=== PATIENT | male | born 1940 | race Caucasian/White ===

== ENCOUNTER → 2016-10-14 | Outpatient (CLI) | payer BC ==
[~2016-10-14] MED LIST: AMLO-110 PO; ASPCH81X PO; ATOR10TA82 PO; CHOL100010 PO; HYDR12.56 PO; PRLSR20 PO
[2016-10-14 11:33] LABS: BASO % 0.3 %; BASO ABS # 0.02 K/uL (0-0.2); COMPLETE YES; EOS % 4.2 %; HEMATOCRIT 42.1 % (42-52); IG% 0.3 %; LYMPH % 23.9 %; LYMPH ABS # 1.41 K/uL (1.2-3.4); MEAN CELL VOLUME 90.7 fL (80-100); MEAN CORPUSCULAR HEMOGLOBIN 29.5 pg (25-34); MEAN CORPUSCULAR HGB CONC 32.5 g/dl (32-36); MEAN PLATELET VOLUME 12.2 fL (7.4-10.4); MONO % 9.3 %; PLATELET COUNT 194 K/uL (130-400); RED BLOOD COUNT 4.64 M/uL (4.7-6.1)
[2016-10-14 11:49] LABS: ALT/SGPT 44 U/L (12-78); AST/SGOT 17 U/L (15-37); BLOOD UREA NITROGEN 35 mg/dl (7-18); BUN/CREATININE RATIO 23.1 (10-20); CARBON DIOXIDE 27 mmol/L (21-32); CHLORIDE 106 mmol/L (98-107); CHOLESTEROL 165 mg/dl (0-200); GLUCOSE 91 mg/dl (70-99); POTASSIUM 4.1 mmol/L (3.5-5.1); SODIUM 140 mmol/L (136-145); TRIGLYCERIDES 90 mg/dl (0-150); VERY LOW DENSITY LIPOPROT CALC 18 mg/dl
[2016-10-14 11:50] LABS: CALCIUM 9.1 mg/dl (8.5-10.1)
[2016-10-14 12:08] LABS: CHOLESTEROL/HDL RATIO 3.2; HDL CHOLESTEROL 51 mg/dl; LDL CHOLESTEROL CALCULATED 96 mg/dl; PROSTATE SPECIFIC ANTIGEN < 0.010 ng/ml (0.000-4.000); THYROID STIMULATING HORMONE 0.686 uIu/ml (0.300-4.500)
== END | disposition home or self-care (01) ==
LOC: C.LAB1850 09:13
PROVIDERS: ATTEND Internal Medicine
DX: E78.00 Pure hypercholesterolemia, unspecified (principal); I10 Essential (primary) hypertension; N18.3 Chronic kidney disease, stage 3 (moderate); C61 Malignant neoplasm of prostate

== ENCOUNTER → 2017-12-21 | Outpatient (CLI) | payer OTHER ==
[~2017-12-21] MED LIST changes: -AMLO-110 PO; +AMLO5TAB3 PO
== END | disposition home or self-care (01) ==
LOC: C.LABSPEC 12:59
PROVIDERS: ATTEND Internal Medicine Infectious Disease
DX: R51 Headache (principal)

== ENCOUNTER 2022-11-08 07:30 | Inpatient (IN) ==
[2022-11-08] MEDS ORDERED: ONDANSETRON INJ 2 MG/ML 2 ML VIAL IV STA (07:48)
--- NOTE | 2022-11-08 07:52 | Emergency Department Note ---
Impression & Plan Dizziness, CHI (closed head injury), Facial laceration, Fall, Hypomagnesemia ED Provider Note ED Provider Note NAME: CHAPO SOTO AGE:82 SEX: Male : 1940 ARRIVES VIA: EMS INFORMANT: Patient ED PROVIDER(s): Delilah Godinez DO CHIEF COMPLAINT: Dizziness, fall HPI: This is an 82-year-old male presents emerged part with dizziness. Patient states he does have a prior history of similar episodes of though never this severe. Patient states this morning dizziness was severe with accompanying headache and nausea although no vomiting. He states he tried to get up and was very off balance and fell striking his head. He denies LOC but does seem to have a hard time remembering the sequence of events this morning. Patient denies any recent illness, fevers or chills. Patient states he did have a headache prior to falling and striking his head. He denies any neck or back pain or other concern for injury. He denies any recent change in medications. He denies vision changes or tinnitus. PAST MEDICAL HISTORY:See Below PAST SURGICAL HISTORY:See Below FAMILY HISTORY:See Below SOCIAL HISTORY:See Below HOME MEDICATIONS:See Below ALLERGIES:See Below VITALS:See Below PHYSICAL EXAMINATION: GENERAL: alert, ill appearing, well nourished, mild distress, non-toxic, holding onto the bed HEAD: nc, small superficial laceration noted to the central superior forehead, no other cephalohematoma, no monsalve signs, no raccoon eyes, no evidence of facial trauma otherwise EYE EXAM: normal conjunctiva, PERRL and EOM's grossly intact, patient with significant nystagmus that appears predominantly horizontal although patient could not keep eyes open OROPHARYNX: no exudate, no erythema, lips, buccal mucosa, and tongue normal and mucous membranes are dry, no evidence of dental trauma, no blood in the posterior oropharynx NECK: supple, no nuchal rigidity, no adenopathy, non-tender, FROM LUNGS: Clear to auscultation. Normal chest wall mechanics, no w/r/r HEART: no murmurs, S1 normal and S2 normal ABDOMEN: abdomen soft, non-tender, normo-active bowel sounds, no masses, no rebound or guarding. BACK: Back is symmetrical on inspection and there is no deformity, no midline tenderness, no CVA tenderness. SKIN: no rashes, petechiae, orbruising UPPER EXTREMITIES: upper extremities are grossly normal. FROM, nml pulses b/l. LOWER EXTREMITIES: No pitting edema. FROM, nml pulses b/l. Scattered superficial abrasions to bilateral lower extremities. Small laceration noted to right great toe. NEURO EXAM: Normal sensorium, cranial nerves II-XII grossly intact, normal speech, no facial droop,unable to perform additional extremity testing due to profound vertigo, no gross limb ataxia Vital Signs: reviewed and remarkable Differential Diagnosis: ischemic Stroke, hemorrhagic stroke, bells palsy, mass, neoplasm, migraine headache, seizure, subarachnoid hemorrhage, TIA, and transient global amnesia. MEDICAL DECISION MAKING: This is an 82-year-old male who presents emergency department following a fall at home complaining of dizziness and weakness. Labs drawn and sent, IV established, EKG performed at bedside interpreted by me and patient monitored on telemetry. Patient started on IV fluids and given IV Zofran and IV Valium in order to help facilitate CT/CTA. CT imaging reassuring, and after nausea improved patient given oral potassium repletion as well as oral meclizine with slow improvement of his symptoms additionally to the point where patient could not open his eyes. Patient's present at bedside and we discussed his presentation additionally. She also made mention that he had not been feeling well recently and had decreased intake and fatigue. He denied any other focal symptoms. Labs reassuring however patient noted to have significant hypomagnesemia which was confirmed on lab testing. Patient started on IV magnesium. Patient's EKG did not show any prolonged intervals or ectopy. Patient noted to have leukocytosis of unclear etiology. Mild hyperglycemia noted otherwise suspect the anion gap more likely from dehydration and not evolving DKA. Patient's CKD appears stable compared to prior on review of EMR. At this time I have a low suspicion for occult infectious etiology. Nasal swab negative for acute viral etiology. I have a low suspicion for any additional occult traumatic injury. Case discussed with hospitalist for additional evaluation and management. Consultation(s): 0945: Discussed with Dr. Kelly. ER Treatment Provided: See below Diagnostics Interpreted By Me: -ECG: Normal sinus at 96, leftward axis, normal intervals, nonspecific ST/T wave change -Cardiac Monitoring: An order was placed for continuous cardiac monitoring. The monitor shows a rate of 98 with normal sinus rhythm. -Laboratory studies: As stated above and show below. -Imaging studies: CT head: No obvious ICH Triage Nursing Note Reviewed Prior/Outside Records Reviewed Procedures: [] Critical Care: Critical care of 46 min performed to assess and manage high likelihood of life- threatening hypomagnesemia, involving labs and imaging performed with assessment to evaluate dizziness and fall diagnosis with frequent reassessment. This time includes bedside time, treatment discussions with patient/family/consultants, documentation time and excludes procedure time. Past Med/Surg History Medical History Arthralgia CKD (chronic kidney disease) GERD (gastroesophageal reflux disease) HTN (hypertension) Hyperglycemia Hyperlipidemia Prostate cancer diagnosed 2010--sx Severe obstructive sleep apnea cpap Surgical History History of bilateral cataract extraction History of cardiac cath roughly 20 yrs ago--no stents History of esophagogastroduodenoscopy (EGD) History of prostate biopsy History of prostatectomy History of wisdom tooth extraction S/P tonsillectomy Family History Father Myocardial infarction Hypertension Obesity Other No family history of adverse response to anesthesia Prostate cancer Denies family history of Ovarian cancer Breast cancer Colorectal cancer Social History Smoking Status: Unknown if ever smoked Second Hand Exposure: No; Do You Dip or Chew Tobacco: No; Hx Alcohol Use: Yes Alcohol type: wine Hx Substance Use: No Preferred Language: Nepali Communication Ability: Effective Visual Impairment: No Limitations Hearing Ability: Normal Clinical Research Coordinator Required: No Beliefs That Will Affect Care: None marital status: Current Living Situation: Spouse current occupational status: retired How many Children do You have: 2 How many Children do You have Comment: 2 sons Other Information That Helps Us Care for You: No Feels Safe at Home: Yes Safety Concerns: Feels Safe At This Time Childhood Exposure to Second-Hand Smoke: Yes Diet: regular during the past year weight has: remained stable Dental Care, Regularly: Yes Physical Activity Frequency: 3-4 Times per Week Seatbelt Use: always Sunscreen Use: Yes Assistive Devices: CPAP Allergies Allergies Allergy/AdvReac Type Severity Reaction Status Date / Time No Known Drug Allergies Allergy Unknown Verified 11/08/22 10:21 Home Meds Home Medications Medication Instructions Recorded Confirmed cholecalciferol (vitamin D3) 50 2,000 units PO HS 04/17/19 11/08/22 mcg (2,000 unit) capsule omeprazole 20 mg capsule,delayed 20 mg PO BID 02/06/20 11/08/22 release Previous Rx's Medication Instructions Recorded amlodipine 5 mg tablet 5 mg PO DAILY #90 tabs 10/24/22 atorvastatin 20 mg tablet (Lipitor) 20 mg PO QPM #90 tabs 10/24/22 hydrochlorothiazide 12.5 mg capsule 12.5 mg PO QAM #90 caps 10/24/22 olmesartan 20 mg tablet 20 mg PO DAILY #90 tabs 10/24/22 Results & Data (ED) Vital Signs Vital Signs - 24 hr 11/08/22 07:40 11/08/22 08:01 11/08/22 07:35 Temperature 36.5 C Temperature Source Oral Pulse Rate 99 H 91 H 100 H Pulse Rate from SpO2 Sensor Respiratory Rate 16 22 Blood Pressure 168/85 H Blood Pressure Mean 112 Pulse Oximetry 97 Sepsis Recent Fever Within 48 Hours No Sepsis New/Unexplained Change in Mental Status No Sepsis Action Taken by Nursing No Action Required 11/08/22 07:36 11/08/22 07:36 11/08/22 08:00 Temperature Temperature Source Pulse Rate 98 H Pulse Rate from SpO2 Sensor Respiratory Rate 18 Blood Pressure 168/85 H 159/105 H Blood Pressure Mean 125 139 Pulse Oximetry Sepsis Recent Fever Within 48 Hours Sepsis New/Unexplained Change in Mental Status Sepsis Action Taken by Nursing 11/08/22 08:00 11/08/22 08:42 11/08/22 08:45 Temperature Temperature Source Pulse Rate 89 99 H Pulse Rate from SpO2 Sensor 97 H Respiratory Rate 21 15 Blood Pressure 176/91 H Blood Pressure Mean 132 Pulse Oximetry 100 Sepsis Recent Fever Within 48 Hours Sepsis New/Unexplained Change in Mental Status Sepsis Action Taken by Nursing 11/08/22 08:45 11/08/22 09:00 11/08/22 09:00 Temperature Temperature Source Pulse Rate 96 H 95 H Pulse Rate from SpO2 Sensor 95 H 96 H Respiratory Rate 16 18 Blood Pressure 168/86 H Blood Pressure Mean 119 Pulse Oximetry 100 100 Sepsis Recent Fever Within 48 Hours Sepsis New/Unexplained Change in Mental Status Sepsis Action Taken by Nursing 11/08/22 09:30 11/08/22 09:30 11/08/22 10:00 Temperature Temperature Source Pulse Rate 91 H 86 Pulse Rate from SpO2 Sensor 91 H 83 Respiratory Rate 22 27 H Blood Pressure 169/86 H Blood Pressure Mean 102 Pulse Oximetry 100 100 Sepsis Recent Fever Within 48 Hours Sepsis New/Unexplained Change in Mental Status Sepsis Action Taken by Nursing Laboratory Data 11/08/22 07:43 11/08/22 07:43 Lab Results 11/08/22 11/08/22 11/08/22 Range/Units 07:43 07:43 07:43 WBC 15.22 H (4.8-10.8) K/ul RBC 4.11 L (4.70-6.10) M/uL Hgb 12.6 L (14.0-18.0) g/dl Hct 35.1 L (42.0-52.0) % MCV 85.4 (80.0-100.0) fL MCH 30.7 (25.0-34.0) pg MCHC 35.9 (32.0-36.0) g/dL RDW Std Deviation 36.9 (36.4-46.3) fL RDW Coeff of Emilie 11.9 (11.5-14.5) % Plt Count 187 (130-400) K/uL MPV 12.6 H (9.4-12.4) fL Immature Gran % (Auto) 0.4 % Neut % (Auto) 87.5 % Lymph % (Auto) 8.5 % Pine % (Auto) 3.3 % Eos % (Auto) 0.1 % Baso % (Auto) 0.2 % Neut # (Auto) 13.31 H (1.40-6.50) K/uL Lymph # (Auto) 1.30 (1.2-3.4) K/uL Pine # (Auto) 0.50 (0.11-0.59) K/uL Eos # (Auto) 0.02 (0-0.50) K/uL Baso # (Auto) 0.03 (0-0.2) K/uL Immature Gran # (Auto) 0.06 (0.01-0.20) K/uL VBG pH (7.36-7.41) VBG pCO2 (38-50) mmHg VBG pO2 mmHg VBG HCO3 mmol/L VBG O2 Saturation % VBG Base Excess mEq/L Sodium 137 (136-145) mmol/L Potassium 2.9 L (3.5-5.1) mmol/L Chloride 104 (98-107) mmol/L Carbon Dioxide 16 L (21-32) mmol/L Anion Gap 17 H (3-11) BUN 30 H (6-23) mg/dl Creatinine 1.65 H (0.6-1.4) mg/dl Est Cr Clr Drug Dosing 35.8 ml/min Est GFR ( Amer) 44.1 ml/min Est GFR (Non-Af Amer) 38.1 ml/min BUN/Creatinine Ratio 18.2 (10-20) Glucose 209 H (70-99(Fasting)) mg/dl Lactate (0.4-2.0) mmol/L Calcium 8.2 L (8.6-10.3) mg/dl Phosphorus (2.5-4.9) mg/dl Magnesium < 0.5 L* (1.7-2.4) mg/dl Total Bilirubin 1.0 (0.2-1.0) mg/dl AST 15 (13-39) U/L ALT 16 (7-52) U/L Alkaline Phosphatase 66 (34-104) U/L Troponin I High Sens 13.3 (0-20) pg/ml C-Reactive Protein (0-0.5) mg/dl Total Protein 7.1 (6.0-8.3) gm/dl Albumin 4.4 (3.4-5.0) gm/dl Globulin 2.7 (2.5-4.0) gm/dl Albumin/Globulin Ratio 1.6 (0.9-2) Lipase 18 (11-82) U/L Procalcitonin (0-0.5) ng/ml TSH 1.308 (0.300-4.500) uIu/ml Urine Color Urine Appearance (Clear) Urine pH (4.5-7.5) Ur Specific Lena (1.000-1.030) Urine Protein (Negative) Urine Glucose (UA) (Negative) Urine Ketones (Negative) Urine Blood (Negative) Urine Nitrite (Negative) Urine Bilirubin (Negative) Urine Urobilinogen (Negative) Ur Leukocyte Esterase (Negative) Urine WBC (Auto) (0-5) /hpf Urine RBC (Auto) (0-4) /hpf U Hyaline Cast (Auto) (0-5) /lpf U Epithel Cells (Auto) (0-5) /lpf Urine Bacteria (Auto) (Negative) Salicylates (3.0-30) mg/dl Urine Opiates Screen (Neg) Ur Methadone, Qual (Neg) Acetaminophen (10-30) ug/ml Urine Barbiturates (Neg) Ur Phencyclidine (PCP) (Neg) U Amphetamin/Meth Scrn (Neg) MDMA (Ecstasy) Screen (Neg) U Benzodiazepines Scrn (Neg) Ur Cocaine Metabolite (Neg) U Marijuana (THC) Screen (Neg) Ethyl Alcohol mg/dL (<10.0) mg/dl Anaplasma Smear Babesia Smear Lyme Disease IgG Ab (Negative) Lyme Disease IgM Ab (Negative) 11/08/22 11/08/22 11/08/22 Range/Units 07:43 09:45 09:45 WBC (4.8-10.8) K/ul RBC (4.70-6.10) M/uL Hgb (14.0-18.0) g/dl Hct (42.0-52.0) % MCV (80.0-100.0) fL MCH (25.0-34.0) pg MCHC (32.0-36.0) g/dL RDW Std Deviation (36.4-46.3) fL RDW Coeff of Emilie (11.5-14.5) % Plt Count (130-400) K/uL MPV (9.4-12.4) fL Immature Gran % (Auto) % Neut % (Auto) % Lymph % (Auto) % Pine % (Auto) % Eos % (Auto) % Baso % (Auto) % Neut # (Auto) (1.40-6.50) K/uL Lymph # (Auto) (1.2-3.4) K/uL Pine # (Auto) (0.11-0.59) K/uL Eos # (Auto) (0-0.50) K/uL Baso # (Auto) (0-0.2) K/uL Immature Gran # (Auto) (0.01-0.20) K/uL VBG pH (7.36-7.41) VBG pCO2 (38-50) mmHg VBG pO2 mmHg VBG HCO3 mmol/L VBG O2 Saturation % VBG Base Excess mEq/L Sodium (136-145) mmol/L Potassium (3.5-5.1) mmol/L Chloride (98-107) mmol/L Carbon Dioxide (21-32) mmol/L Anion Gap (3-11) BUN (6-23) mg/dl Creatinine (0.6-1.4) mg/dl Est Cr Clr Drug Dosing ml/min Est GFR ( Amer) ml/min Est GFR (Non-Af Amer) ml/min BUN/Creatinine Ratio (10-20) Glucose (70-99(Fasting)) mg/dl Lactate (0.4-2.0) mmol/L Calcium (8.6-10.3) mg/dl Phosphorus (2.5-4.9) mg/dl Magnesium (1.7-2.4) mg/dl Total Bilirubin (0.2-1.0) mg/dl AST (13-39) U/L ALT (7-52) U/L Alkaline Phosphatase (34-104) U/L Troponin I High Sens (0-20) pg/ml C-Reactive Protein (0-0.5) mg/dl Total Protein (6.0-8.3) gm/dl Albumin (3.4-5.0) gm/dl Globulin (2.5-4.0) gm/dl Albumin/Globulin Ratio (0.9-2) Lipase (11-82) U/L Procalcitonin (0-0.5) ng/ml TSH (0.300-4.500) uIu/ml Urine Color Yellow Urine Appearance Clear (Clear) Urine pH 5.0 (4.5-7.5) Ur Specific Lena 1.030 (1.000-1.030) Urine Protein Negative (Negative) Urine Glucose (UA) Negative (Negative) Urine Ketones 1+ H (Negative) Urine Blood Trace H (Negative) Urine Nitrite Negative (Negative) Urine Bilirubin Negative (Negative) Urine Urobilinogen Negative (Negative) Ur Leukocyte Esterase Negative (Negative) Urine WBC (Auto) 1-5 (0-5) /hpf Urine RBC (Auto) 0-4 (0-4) /hpf U Hyaline Cast (Auto) 1-5 (0-5) /lpf U Epithel Cells (Auto) 5-10 H (0-5) /lpf Urine Bacteria (Auto) Negative (Negative) Salicylates (3.0-30) mg/dl Urine Opiates Screen Neg (Neg) Ur Methadone, Qual Neg (Neg) Acetaminophen (10-30) ug/ml Urine Barbiturates Neg (Neg) Ur Phencyclidine (PCP) Neg (Neg) U Amphetamin/Meth Scrn Neg (Neg) MDMA (Ecstasy) Screen Neg (Neg) U Benzodiazepines Scrn Neg (Neg) Ur Cocaine Metabolite Neg (Neg) U Marijuana (THC) Screen Neg (Neg) Ethyl Alcohol mg/dL (<10.0) mg/dl Anaplasma Smear Babesia Smear Lyme Disease IgG Ab Negative (Negative) Lyme Disease IgM Ab Negative (Negative) 11/08/22 11/08/22 11/08/22 Range/Units 09:59 09:59 09:59 WBC (4.8-10.8) K/ul RBC (4.70-6.10) M/uL Hgb (14.0-18.0) g/dl Hct (42.0-52.0) % MCV (80.0-100.0) fL MCH (25.0-34.0) pg MCHC (32.0-36.0) g/dL RDW Std Deviation (36.4-46.3) fL RDW Coeff of Emilie (11.5-14.5) % Plt Count (130-400) K/uL MPV (9.4-12.4) fL Immature Gran % (Auto) % Neut % (Auto) % Lymph % (Auto) % Pine % (Auto) % Eos % (Auto) % Baso % (Auto) % Neut # (Auto) (1.40-6.50) K/uL Lymph # (Auto) (1.2-3.4) K/uL Pine # (Auto) (0.11-0.59) K/uL Eos # (Auto) (0-0.50) K/uL Baso # (Auto) (0-0.2) K/uL Immature Gran # (Auto) (0.01-0.20) K/uL VBG pH (7.36-7.41) VBG pCO2 (38-50) mmHg VBG pO2 mmHg VBG HCO3 mmol/L VBG O2 Saturation % VBG Base Excess mEq/L Sodium (136-145) mmol/L Potassium (3.5-5.1) mmol/L Chloride (98-107) mmol/L Carbon Dioxide (21-32) mmol/L Anion Gap (3-11) BUN (6-23) mg/dl Creatinine (0.6-1.4) mg/dl Est Cr Clr Drug Dosing ml/min Est GFR ( Amer) ml/min Est GFR (Non-Af Amer) ml/min BUN/Creatinine Ratio (10-20) Glucose (70-99(Fasting)) mg/dl Lactate (0.4-2.0) mmol/L Calcium (8.6-10.3) mg/dl Phosphorus 1.2 L* (2.5-4.9) mg/dl Magnesium (1.7-2.4) mg/dl Total Bilirubin (0.2-1.0) mg/dl AST (13-39) U/L ALT (7-52) U/L Alkaline Phosphatase (34-104) U/L Troponin I High Sens (0-20) pg/ml C-Reactive Protein < 0.50 (0-0.5) mg/dl Total Protein (6.0-8.3) gm/dl Albumin (3.4-5.0) gm/dl Globulin (2.5-4.0) gm/dl Albumin/Globulin Ratio (0.9-2) Lipase (11-82) U/L Procalcitonin < 0.05 (0-0.5) ng/ml TSH (0.300-4.500) uIu/ml Urine Color Urine Appearance (Clear) Urine pH (4.5-7.5) Ur Specific Lena (1.000-1.030) Urine Protein (Negative) Urine Glucose (UA) (Negative) Urine Ketones (Negative) Urine Blood (Negative) Urine Nitrite (Negative) Urine Bilirubin (Negative) Urine Urobilinogen (Negative) Ur Leukocyte Esterase (Negative) Urine WBC (Auto) (0-5) /hpf Urine RBC (Auto) (0-4) /hpf U Hyaline Cast (Auto) (0-5) /lpf U Epithel Cells (Auto) (0-5) /lpf Urine Bacteria (Auto) (Negative) Salicylates (3.0-30) mg/dl Urine Opiates Screen (Neg) Ur Methadone, Qual (Neg) Acetaminophen (10-30) ug/ml Urine Barbiturates (Neg) Ur Phencyclidine (PCP) (Neg) U Amphetamin/Meth Scrn (Neg) MDMA (Ecstasy) Screen (Neg) U Benzodiazepines Scrn (Neg) Ur Cocaine Metabolite (Neg) U Marijuana (THC) Screen (Neg) Ethyl Alcohol mg/dL (<10.0) mg/dl Anaplasma Smear See Comment Babesia Smear See Comment Lyme Disease IgG Ab (Negative) Lyme Disease IgM Ab (Negative) 11/08/22 11/08/22 11/08/22 Range/Units 09:59 10:27 10:27 WBC (4.8-10.8) K/ul RBC (4.70-6.10) M/uL Hgb (14.0-18.0) g/dl Hct (42.0-52.0) % MCV (80.0-100.0) fL MCH (25.0-34.0) pg MCHC (32.0-36.0) g/dL RDW Std Deviation (36.4-46.3) fL RDW Coeff of Emilie (11.5-14.5) % Plt Count (130-400) K/uL MPV (9.4-12.4) fL Immature Gran % (Auto) % Neut % (Auto) % Lymph % (Auto) % Pine % (Auto) % Eos % (Auto) % Baso % (Auto) % Neut # (Auto) (1.40-6.50) K/uL Lymph # (Auto) (1.2-3.4) K/uL Pine # (Auto) (0.11-0.59) K/uL Eos # (Auto) (0-0.50) K/uL Baso # (Auto) (0-0.2) K/uL Immature Gran # (Auto) (0.01-0.20) K/uL VBG pH 7.42 H (7.36-7.41) VBG pCO2 31 L (38-50) mmHg VBG pO2 29 mmHg VBG HCO3 20 mmol/L VBG O2 Saturation < 60.0 % VBG Base Excess -3.5 mEq/L Sodium (136-145) mmol/L Potassium (3.5-5.1) mmol/L Chloride (98-107) mmol/L Carbon Dioxide (21-32) mmol/L Anion Gap (3-11) BUN (6-23) mg/dl Creatinine (0.6-1.4) mg/dl Est Cr Clr Drug Dosing ml/min Est GFR ( Amer) ml/min Est GFR (Non-Af Amer) ml/min BUN/Creatinine Ratio (10-20) Glucose (70-99(Fasting)) mg/dl Lactate 1.3 (0.4-2.0) mmol/L Calcium (8.6-10.3) mg/dl Phosphorus (2.5-4.9) mg/dl Magnesium (1.7-2.4) mg/dl Total Bilirubin (0.2-1.0) mg/dl AST (13-39) U/L ALT (7-52) U/L Alkaline Phosphatase (34-104) U/L Troponin I High Sens (0-20) pg/ml C-Reactive Protein (0-0.5) mg/dl Total Protein (6.0-8.3) gm/dl Albumin (3.4-5.0) gm/dl Globulin (2.5-4.0) gm/dl Albumin/Globulin Ratio (0.9-2) Lipase (11-82) U/L Procalcitonin (0-0.5) ng/ml TSH (0.300-4.500) uIu/ml Urine Color Urine Appearance (Clear) Urine pH (4.5-7.5) Ur Specific Lena (1.000-1.030) Urine Protein (Negative) Urine Glucose (UA) (Negative) Urine Ketones (Negative) Urine Blood (Negative) Urine Nitrite (Negative) Urine Bilirubin (Negative) Urine Urobilinogen (Negative) Ur Leukocyte Esterase (Negative) Urine WBC (Auto) (0-5) /hpf Urine RBC (Auto) (0-4) /hpf U Hyaline Cast (Auto) (0-5) /lpf U Epithel Cells (Auto) (0-5) /lpf Urine Bacteria (Auto) (Negative) Salicylates < 3.0 L (3.0-30) mg/dl Urine Opiates Screen (Neg) Ur Methadone, Qual (Neg) Acetaminophen < 3 L (10-30) ug/ml Urine Barbiturates (Neg) Ur Phencyclidine (PCP) (Neg) U Amphetamin/Meth Scrn (Neg) MDMA (Ecstasy) Screen (Neg) U Benzodiazepines Scrn (Neg) Ur Cocaine Metabolite (Neg) U Marijuana (THC) Screen (Neg) Ethyl Alcohol mg/dL (<10.0) mg/dl Anaplasma Smear Babesia Smear Lyme Disease IgG Ab (Negative) Lyme Disease IgM Ab (Negative) 11/08/22 Range/Units 10:27 WBC (4.8-10.8) K/ul RBC (4.70-6.10) M/uL Hgb (14.0-18.0) g/dl Hct (42.0-52.0) % MCV (80.0-100.0) fL MCH (25.0-34.0) pg MCHC (32.0-36.0) g/dL RDW Std Deviation (36.4-46.3) fL RDW Coeff of Emilie (11.5-14.5) % Plt Count (130-400) K/uL MPV (9.4-12.4) fL Immature Gran % (Auto) % Neut % (Auto) % Lymph % (Auto) % Pine % (Auto) % Eos % (Auto) % Baso % (Auto) % Neut # (Auto) (1.40-6.50) K/uL Lymph # (Auto) (1.2-3.4) K/uL Pine # (Auto) (0.11-0.59) K/uL Eos # (Auto) (0-0.50) K/uL Baso # (Auto) (0-0.2) K/uL Immature Gran # (Auto) (0.01-0.20) K/uL VBG pH (7.36-7.41) VBG pCO2 (38-50) mmHg VBG pO2 mmHg VBG HCO3 mmol/L VBG O2 Saturation % VBG Base Excess mEq/L Sodium (136-145) mmol/L Potassium (3.5-5.1) mmol/L Chloride (98-107) mmol/L Carbon Dioxide (21-32) mmol/L Anion Gap (3-11) BUN (6-23) mg/dl Creatinine (0.6-1.4) mg/dl Est Cr Clr Drug Dosing ml/min Est GFR ( Amer) ml/min Est GFR (Non-Af Amer) ml/min BUN/Creatinine Ratio (10-20) Glucose (70-99(Fasting)) mg/dl Lactate (0.4-2.0) mmol/L Calcium (8.6-10.3) mg/dl Phosphorus (2.5-4.9) mg/dl Magnesium (1.7-2.4) mg/dl Total Bilirubin (0.2-1.0) mg/dl AST (13-39) U/L ALT (7-52) U/L Alkaline Phosphatase (34-104) U/L Troponin I High Sens (0-20) pg/ml C-Reactive Protein (0-0.5) mg/dl Total Protein (6.0-8.3) gm/dl Albumin (3.4-5.0) gm/dl Globulin (2.5-4.0) gm/dl Albumin/Globulin Ratio (0.9-2) Lipase (11-82) U/L Procalcitonin (0-0.5) ng/ml TSH (0.300-4.500) uIu/ml Urine Color Urine Appearance (Clear) Urine pH (4.5-7.5) Ur Specific Lena (1.000-1.030) Urine Protein (Negative) Urine Glucose (UA) (Negative) Urine Ketones (Negative) Urine Blood (Negative) Urine Nitrite (Negative) Urine Bilirubin (Negative) Urine Urobilinogen (Negative) Ur Leukocyte Esterase (Negative) Urine WBC (Auto) (0-5) /hpf Urine RBC (Auto) (0-4) /hpf U Hyaline Cast (Auto) (0-5) /lpf U Epithel Cells (Auto) (0-5) /lpf Urine Bacteria (Auto) (Negative) Salicylates (3.0-30) mg/dl Urine Opiates Screen (Neg) Ur Methadone, Qual (Neg) Acetaminophen (10-30) ug/ml Urine Barbiturates (Neg) Ur Phencyclidine (PCP) (Neg) U Amphetamin/Meth Scrn (Neg) MDMA (Ecstasy) Screen (Neg) U Benzodiazepines Scrn (Neg) Ur Cocaine Metabolite (Neg) U Marijuana (THC) Screen (Neg) Ethyl Alcohol mg/dL < 10.0 (<10.0) mg/dl Anaplasma Smear Babesia Smear Lyme Disease IgG Ab (Negative) Lyme Disease IgM Ab (Negative) Administered Medications Magnesium Sulfate/Dextrose (Magnesium Sulfate / D5w) 1 gm in 100 mls @ 50 mls/hr IV Q2H JUNE Stop: 11/08/22 23:36 Last Admin: 11/08/22 16:06 Dose: 50 mls/hr Documented By: Infusion: 11/08/22 16:06 Dose: 50 mls/hr Documented By: OEdward Admin: 11/08/22 14:19 Dose: 50 mls/hr Documented By: DIEUDONNE Insulin Aspart (Insulin Aspart Per Unit Charge) 0 units SC ACHS JUNE Stop: 12/08/22 13:59 Last Admin: 11/08/22 16:35 Dose: Not Given Documented By: DIEUDONNE Co-signed By: JAZZY Magnesium Oxide (Magnesium Oxide 400 Mg Tab) 800 mg PO BID JUNE Stop: 12/08/22 13:36 Last Admin: 11/08/22 14:18 Dose: 800 mg Documented By: DIEUDONNE Discontinued Medications Diazepam (Diazepam 5 Mg/Ml Inj 10ml Vial) 2 mg IV NOW STA Stop: 11/08/22 07:49 Last Admin: 11/08/22 07:58 Dose: 2 mg Documented By: CLIFTON Gadobutrol (Gadobutrol 65ml Vial) 8.5 ml IV ONCE ONE Stop: 11/08/22 13:07 Last Admin: 11/08/22 13:07 Dose: 8.5 ml Documented By: MLIsis Sodium Chloride (Nss 1000ml) 1,000 mls @ 200 mls/hr IV .Q5H JUNE Stop: 12/08/22 07:59 Last Infusion: 11/08/22 13:02 Dose: 0 mls/hr Documented By: Admin: 11/08/22 07:58 Dose: 200 mls/hr Documented By: CLIFTON Magnesium Sulfate/Dextrose (Magnesium Sulfate / D5w) 1 gm in 100 mls @ 100 mls/hr IV Q1H JUNE Stop: 11/08/22 11:15 Last Infusion: 11/08/22 11:28 Dose: 0 mls/hr Documented By: Admin: 11/08/22 10:26 Dose: 100 mls/hr Documented By: Infusion: 11/08/22 10:26 Dose: 100 mls/hr Documented By: Admin: 11/08/22 09:30 Dose: 100 mls/hr Documented By: CLIFTON Potassium Phosphate 21 mmol/ (Sodium Chloride) 507 mls @ 145 mls/hr IV ONE ONE Stop: 11/08/22 14:44 Last Infusion: 11/08/22 14:56 Dose: 0 mls/hr Documented By: Admin: 11/08/22 11:29 Dose: 145 mls/hr Documented By: ALPESH Magnesium Sulfate/Dextrose (Magnesium Sulfate / D5w) 1 gm in 100 mls @ 100 mls/hr IV 1115 ONE Stop: 11/08/22 12:14 Last Infusion: 11/08/22 12:11 Dose: 0 mls/hr Documented By: Admin: 11/08/22 11:11 Dose: 100 mls/hr Documented By: LAKSHMI Insulin Aspart (Insulin Aspart Per Unit Charge) 0 units SC Q6 JUNE Stop: 12/08/22 13:59 Last Admin: 11/08/22 14:23 Dose: Not Given Documented By: DIEUDONNE Co-signed By: JAZZY Ioversol (Optiray 320 125ml) 119 ml IV ONCE ONE Stop: 11/08/22 08:31 Last Admin: 11/08/22 08:31 Dose: 119 ml Documented By: GILMAR Meclizine HCl (Meclizine Hcl 25 Mg Tab) 25 mg PO NOW STA Stop: 11/08/22 08:54 Last Admin: 11/08/22 09:15 Dose: 25 mg Documented By: CLIFTON Ondansetron HCl (Ondansetron Inj 2 Mg/Ml 2 Ml Vial) 4 mg IV NOW STA Stop: 11/08/22 07:49 Last Admin: 11/08/22 07:58 Dose: 4 mg Documented By: CLIFTON Potassium Chloride (Potassium Chloride Crtab 20 Meq Tabcr) 40 meq PO NOW STA Stop: 11/08/22 08:20 Last Admin: 11/08/22 08:45 Dose: 40 meq Documented By: CLIFTON Imaging Data Radiologist's Impression: Head CT 11/08/22 07:[address] OF THE BRAIN; CT ANGIOGRAM OF THE BRAIN; CT ANGIOGRAM OF THE NECK CLINICAL HISTORY: Headache and dizziness. Head injury. COMPARISON STUDY: MRI of the brain dated 02/05/2018. Carotid artery ultrasound dated 05/15/2013 TECHNIQUE: Unenhanced axial CT scan of the brain is performed. Subsequently, following the IV administration of 119 of Optiray 320, CT angiogram of the head and neck was performed from the aortic arch to the vertex. Images are reviewed in the axial, sagittal, and coronal planes. 3-D MIPS images are created and assessed. IV contrast was administered without complication. All measurements were calculated based on NASCET criteria. A dose lowering technique was utilized adhering to the principles of ALARA. CT DOSE: 1074.38 mGy.cm FINDINGS: Brain parenchyma: There is age-related involutional change noting minimal microangiopathic disease. There is no hemorrhage, mass effect, or evidence of acute territorial ischemia by CT criteria. There is no evidence of enhancing mass lesion on the angiogram phase images. The ventricles, sulci, and cisterns are prominent secondary to involutional change. Juarez-white matter differentiation is preserved. No extra-axial fluid collection is seen. Thoracic aorta: There is atherosclerotic calcification of the thoracic aorta. Visualized portions of the thoracic aorta are normal in caliber. The aortic arch demonstrates standard 3-vessel anatomy. Right carotid arterial system: The right common carotid artery is widely patent, as are the right internal and external carotid arteries. Calcified plaque is noted in the carotid bulb. Left carotid arterial system: The left common carotid artery is widely patent, as are the left internal and external carotid arteries. Calcified plaque is noted in the carotid bulb. Vertebral arteries: The vertebral arteries are widely patent bilaterally and codominant in the neck. Subclavian arteries: Widely patent bilaterally. Intracranial vasculature: There is atherosclerotic calcification of the cavernous carotid arteries. The internal carotid arteries are patent at the skull base, as are the anterior and middle cerebral arteries bilaterally. The left A1 segment is diminutive. There is origin of the left posterior cerebral artery. The vertebrobasilar system and posterior cerebral arteries are widely patent. The right vertebral artery is dominant. There is no aneurysm, high-grade stenosis, or focal vessel cut off seen throughout the intracranial circulation. Jugular veins: Patent bilaterally. Dural sinuses: Patent. Lung apices: A calcific granuloma is seen in the right upper lobe. Partially visualized upper lobe lung parenchyma otherwise appears clear. Soft tissues: There is a mild frontal scalp contusion. The visualized pharyngeal soft tissues are normal in appearance noting angiographic phase technique. The oropharyngeal airway appears widely patent. The salivary and thyroid glands are normal in appearance. No cervical lymphadenopathy is seen. Skeletal structures: The skeletal structures are osteopenic. The calvarium appears intact. The cervical spine is maintained Multilevel spondylosis. No lytic or blastic lesion is seen. Orbits: The bony orbits are intact. Orbital contents are normal as visualized noting bilateral ocular lens implants. Sinuses and mastoids: There is trace mucosal thickening within the left maxillary antrum. The remaining paranasal sinuses are clear. The mastoid air cells are well pneumatized. IMPRESSION: 1. There is no hemorrhage, mass effect, or evidence of acute territorial ischemia by CT criteria. 2. Unremarkable CT angiogram of the brain. 3. Unremarkable CT angiogram of the neck. ACT 112: Negative or not required by law. Electronically signed by: Carlos David M.D. 11/08/2022 8:52 AM Head CTA 11/08/22 07:[address] OF THE BRAIN; CT ANGIOGRAM OF THE BRAIN; CT ANGIOGRAM OF THE NECK CLINICAL HISTORY: Headache and dizziness. Head injury. COMPARISON STUDY: MRI of the brain dated 02/05/2018. Carotid artery ultrasound dated 05/15/2013 TECHNIQUE: Unenhanced axial CT scan of the brain is performed. Subsequently, following the IV administration of 119 of Optiray 320, CT angiogram of the head and neck was performed from the aortic arch to the vertex. Images are reviewed in the axial, sagittal, and coronal planes. 3-D MIPS images are created and assessed. IV contrast was administered without complication. All measurements were calculated based on NASCET criteria. A dose lowering technique was utilized adhering to the principles of ALARA. CT DOSE: 1074.38 mGy.cm FINDINGS: Brain parenchyma: There is age-related involutional change noting minimal microangiopathic disease. There is no hemorrhage, mass effect, or evidence of acute territorial ischemia by CT criteria. There is no evidence of enhancing mass lesion on the angiogram phase images. The ventricles, sulci, and cisterns are prominent secondary to involutional change. Juarez-white matter differentiation is preserved. No extra-axial fluid collection is seen. Thoracic aorta: There is atherosclerotic calcification of the thoracic aorta. Visualized portions of the thoracic aorta are normal in caliber. The aortic arch demonstrates standard 3-vessel anatomy. Right carotid arterial system: The right common carotid artery is widely patent, as are the right internal and external carotid arteries. Calcified plaque is noted in the carotid bulb. Left carotid arterial system: The left common carotid artery is widely patent, as are the left internal and external carotid arteries. Calcified plaque is noted in the carotid bulb. Vertebral arteries: The vertebral arteries are widely patent bilaterally and codominant in the neck. Subclavian arteries: Widely patent bilaterally. Intracranial vasculature: There is atherosclerotic calcification of the cavernous carotid arteries. The internal carotid arteries are patent at the skull base, as are the anterior and middle cerebral arteries bilaterally. The left A1 segment is diminutive. There is origin of the left posterior cereb ral artery. The vertebrobasilar system and posterior cerebral arteries are widely patent. The right vertebral artery is dominant. There is no aneurysm, high-grade stenosis, or focal vessel cut off seen throughout the intracranial circulation. Jugular veins: Patent bilaterally. Dural sinuses: Patent. Lung apices: A calcific granuloma is seen in the right upper lobe. Partially visualized upper lobe lung parenchyma otherwise appears clear. Soft tissues: There is a mild frontal scalp contusion. The visualized pharyngeal soft tissues are normal in appearance noting angiographic phase technique. The oropharyngeal airway appears widely patent. The salivary and thyroid glands are normal in appearance. No cervical lymphadenopathy is seen. Skeletal structures: The skeletal structures are osteopenic. The calvarium appears intact. The cervical spine is maintained Multilevel spondylosis. No lytic or blastic lesion is seen. Orbits: The bony orbits are intact. Orbital contents are normal as visualized noting bilateral ocular lens implants. Sinuses and mastoids: There is trace mucosal thickening within the left maxillary antrum. The remaining paranasal sinuses are clear. The mastoid air cells are well pneumatized. IMPRESSION: 1. There is no hemorrhage, mass effect, or evidence of acute territorial ischemia by CT criteria. 2. Unremarkable CT angiogram of the brain. 3. Unremarkable CT angiogram of the neck. ACT 112: Negative or not required by law. Electronically signed by: Carlos David M.D. 11/08/2022 8:52 AM Neck CTA 11/08/22 07:[address] OF THE BRAIN; CT ANGIOGRAM OF THE BRAIN; CT ANGIOGRAM OF THE NECK CLINICAL HISTORY: Headache and dizziness. Head injury. COMPARISON STUDY: MRI of the brain dated 02/05/2018. Carotid artery ultrasound dated 05/15/2013 TECHNIQUE: Unenhanced axial CT scan of the brain is performed. Subsequently, following the IV administration of 119 of Optiray 320, CT angiogram of the head and neck was performed from the aortic arch to the vertex. Images are reviewed in the axial, sagittal, and coronal planes. 3-D MIPS images are created and assessed. IV contrast was administered without complication. All measurements were calculated based on NASCET criteria. A dose lowering technique was uti lized adhering to the principles of ALARA. CT DOSE: 1074.38 mGy.cm FINDINGS: Brain parenchyma: There is age-related involutional change noting minimal microangiopathic disease. There is no hemorrhage, mass effect, or evidence of acute territorial ischemia by CT criteria. There is no evidence of enhancing mass lesion on the angiogram phase images. The ventricles, sulci, and cisterns are prominent secondary to involutional change. Juarez-white matter differentiation is preserved. No extra-axial fluid collection is seen. Thoracic aorta: There is atherosclerotic calcification of the thoracic aorta. Visualized portions of the thoracic aorta are normal in caliber. The aortic arch demonstrates standard 3-vessel anatomy. Right carotid arterial system: The right common carotid artery is widely patent, as are the right internal and external carotid arteries. Calcified plaque is noted in the carotid bulb. Left carotid arterial system: The left common carotid artery is widely patent, as are the left internal and external carotid arteries. Calcified plaque is noted in the carotid bulb. Vertebral arteries: The vertebral arteries are widely patent bilaterally and codominant in the neck. Subclavian arteries: Widely patent bilaterally. Intracranial vasculature: There is atherosclerotic calcification of the cavernous carotid arteries. The internal carotid arteries are patent at the skull base, as are the anterior and middle cerebral arteries bilaterally. The left A1 segment is diminutive. There is origin of the left posterior cerebral artery. The vertebrobasilar system and posterior cerebral arteries are widely patent. The right vertebral artery is dominant. There is no aneurysm, high-grade stenosis, or focal vessel cut off seen throughout the intracranial circulation. Jugular veins: Patent bilaterally. Dural sinuses: Patent. Lung apices: A calcific granuloma is seen in the right upper lobe. Partially visualized upper lobe lung parenchyma otherwise appears clear. Soft tissues: There is a mild frontal scalp contusion. The visualized pharyngeal soft tissues are normal in appearance noting angiographic phase technique. The oropharyngeal airway appears widely patent. The salivary and thyroid glands are normal in appearance. No cervical lymphadenopathy is seen. Skeletal structures: The skeletal structures are osteopenic. The calvarium appears intact. The cervical spine is maintained Multilevel spondylosis. No lytic or blastic lesion is seen. Orbits: The bony orbits are intact. Orbital contents are normal as visualized noting bilateral ocular lens implants. Sinuses and mastoids: There is trace mucosal thickening within the left maxillary antrum. The remaining paranasal sinuses are clear. The mastoid air cells are well pneumatized. IMPRESSION: 1. There is no hemorrhage, mass effect, or evidence of acute territorial ischemia by CT criteria. 2. Unremarkable CT angiogram of the brain. 3. Unremarkable CT angiogram of the neck. ACT 112: Negative or not required by law. Electronically signed by: Carlos David M.D. 11/08/2022 8:52 AM Chest X-Ray 11/08/22 10:14 SINGLE VIEW CHEST CLINICAL HISTORY: Sepsis. FINDINGS: An AP, portable, upright chest radiograph is obtained. No prior studies are available for comparison at the time of dictation. The heart is mildly enlarged noting atherosclerotic calcification of the thoracic aorta. The pulmonary vasculature is noncongested. Chronic interstitial thickening is similar to previous. The lungs and pleural spaces are otherwise clear noting mild bibasilar scarring/atelectasis. No pneumothorax is seen. The skeletal structures are osteopenic. The bony thorax is grossly intact. IMPRESSION: No active disease in the chest. ACT 112: Negative or not required by law. Electronically signed by: Carlos David M.D. 11/08/2022 10:26 AM Discharge Plan Visit Data Chief Complaint: Vertigo Stated Complaint: VERTIGO SX, FALL, LACERATION ED Provider: Delilah Godinez Discharge Problem: Dizziness, CHI (closed head injury), Facial laceration, Fall, Hypomagnesemia Patient Disposition: Admitted As Inpatient Discharge Instructions Interventions: ED Discharge Assessment Last Done: 11/08/22 13:10
[2022-11-08] MEDS ORDERED: SODIUM CHLORIDE 0.9% 1000ML 1,000 ML IV SCH (08:00)
[2022-11-08 08:09] LABS: Basophils # (auto) 0.03 K/uL (0-0.2); Basophils % (auto) 0.2 %; Eosinophils # (auto) 0.02 K/uL (0-0.50); Eosinophils % (auto) 0.1 %; Hematocrit (blood only) 35.1 % (42.0-52.0); Hemoglobin 12.6 g/dl (14.0-18.0); Immature Granulocytes # (auto) 0.06 K/uL (0.01-0.20); Immature Granulocytes % (auto) 0.4 %; Lymphocytes % (auto) 8.5 %; Mean Corpuscular Hemoglobin 30.7 pg (25.0-34.0); Mean Corpuscular Hgb Conc 35.9 g/dL (32.0-36.0); Mean Corpuscular Volume 85.4 fL (80.0-100.0); Mean Platelet Volume 12.6 fL (9.4-12.4); Monocytes % (auto) 3.3 %; Neutrophils # (auto) 13.31 K/uL (1.40-6.50); Neutrophils % (auto) 87.5 %; Platelet Count 187 K/uL (130-400); RDW Coefficient of Variation 11.9 % (11.5-14.5); RDW Standard Deviation 36.9 fL (36.4-46.3); Red Blood Count 4.11 M/uL (4.70-6.10); White Blood Count 15.22 K/ul (4.8-10.8)
[2022-11-08 08:12] LABS: Anion Gap 17 (3-11); BUN Creatinine Ratio 18.2 (10-20); Blood Urea Nitrogen 30 mg/dl (6-23); Calcium 8.2 mg/dl (8.6-10.3); Carbon Dioxide 16 mmol/L (21-32); Chloride 104 mmol/L (98-107); Creatinine Clr Calc Pharmacy 35.8 ml/min; Est GFR (African American) 44.1 ml/min; Est GFR (Non-African American) 38.1 ml/min; Glucose 209 mg/dl (70-99(Fasting)); Potassium 2.9 mmol/L (3.5-5.1); Sodium 137 mmol/L (136-145)
[2022-11-08 08:14] LABS: Alanine Aminotransferase 16 U/L (7-52); Albumin Level 4.4 gm/dl (3.4-5.0); Alkaline Phosphatase 66 U/L (34-104); Aspartate Aminotransferase 15 U/L (13-39); Total Protein 7.1 gm/dl (6.0-8.3)
[2022-11-08 08:18] LABS: Troponin I High Sensitivity 13.3 pg/ml (0-20)
[2022-11-08] MEDS ORDERED: POTASSIUM CHLORIDE CRTAB 20 MEQ TABCR PO STA ×2 (08:19→21:43)
[2022-11-08] MEDS ORDERED: OPTIRAY 320 125ml IV ONE (08:30)
[2022-11-08] MEDS ORDERED: MECLIZINE HCL 25 MG TAB PO STA (08:53)
--- NOTE | 2022-11-08 08:55 | CT Scan Report ---
UNENHANCED CT OF THE BRAIN; CT ANGIOGRAM OF THE BRAIN; CT ANGIOGRAM OF THE NECK CLINICAL HISTORY: Headache and dizziness. Head injury. COMPARISON STUDY: MRI of the brain dated 02/05/2018. Carotid artery ultrasound dated 05/15/2013 TECHNIQUE: Unenhanced axial CT scan of the brain is performed. Subsequently, following the IV adminis tration of 119 of Optiray 320, CT angiogram of the head and neck was performed from the aortic arch t o the vertex. Images are reviewed in the axial, sagittal, and coronal planes. 3-D MIPS images are cre ated and assessed. IV contrast was administered without complication. All measurements were calculate d based on NASCET criteria. A dose lowering technique was utilized adhering to the principles of ALA RA. CT DOSE: 1074.38 mGy.cm FINDINGS: Brain parenchyma: There is age-related involutional change noting minimal microangiopathic disease. T here is no hemorrhage, mass effect, or evidence of acute territorial ischemia by CT criteria. There i s no evidence of enhancing mass lesion on the angiogram phase images. The ventricles, sulci, and cist erns are prominent secondary to involutional change. Juarez-white matter differentiation is preserved. No extra-axial fluid collection is seen. Thoracic aorta: There is atherosclerotic calcification of the thoracic aorta. Visualized portions of the thoracic aorta are normal in caliber. The aortic arch demonstrates standard 3-vessel anatomy. Right carotid arterial system: The right common carotid artery is widely patent, as are the right int ernal and external carotid arteries. Calcified plaque is noted in the carotid bulb. Left carotid arterial system: The left common carotid artery is widely patent, as are the left healthcare administration internship al and external carotid arteries. Calcified plaque is noted in the carotid bulb. Vertebral arteries: The vertebral arteries are widely patent bilaterally and codominant in the neck. Subclavian arteries: Widely patent bilaterally. Intracranial vasculature: There is atherosclerotic calcification of the cavernous carotid arteries. T he internal carotid arteries are patent at the skull base, as are the anterior and middle cerebral ar teries bilaterally. The left A1 segment is diminutive. There is origin of the left posterior ce rebral artery. The vertebrobasilar system and posterior cerebral arteries are widely patent. The righ t vertebral artery is dominant. There is no aneurysm, high-grade stenosis, or focal vessel cut off se en throughout the intracranial circulation. Jugular veins: Patent bilaterally. Dural sinuses: Patent. Lung apices: A calcific granuloma is seen in the right upper lobe. Partially visualized upper lobe giselle ng parenchyma otherwise appears clear. Soft tissues: There is a mild frontal scalp contusion. The visualized pharyngeal soft tissues are nor mal in appearance noting angiographic phase technique. The oropharyngeal airway appears widely patent . The salivary and thyroid glands are normal in appearance. No cervical lymphadenopathy is seen. Skeletal structures: The skeletal structures are osteopenic. The calvarium appears intact. The cervic al spine is maintained Multilevel spondylosis. No lytic or blastic lesion is seen. Orbits: The bony orbits are intact. Orbital contents are normal as visualized noting bilateral ocular lens implants. Sinuses and mastoids: There is trace mucosal thickening within the left maxillary antrum. The remaini ng paranasal sinuses are clear. The mastoid air cells are well pneumatized. IMPRESSION: 1. There is no hemorrhage, mass effect, or evidence of acute territorial ischemia by CT criteria. 2. Unremarkable CT angiogram of the brain. 3. Unremarkable CT angiogram of the neck. ACT 112: Negative or not required by law. Electronically signed by: Carlos David M.D. 11/08/2022 8:52 AM
[2022-11-08 08:58] LABS: Lyme Ab IgG w/WB Rflx Negative (Negative); Lyme Ab IgM w/WB Rflx Negative (Negative)
[2022-11-08 09:16] LABS: Magnesium < 0.5 mg/dl (1.7-2.4)
[2022-11-08] MEDS: MAGNESIUM SULFATE / D5W 1 GM/100 ML BAG IV SCH ×7 (09:30→22:37)
[2022-11-08 10:08] LABS: Base Excess VBG -3.5 mEq/L; HCO3 VBG 20 mmol/L; Oxygen Saturation VBG < 60.0 %; PCO2 VBG 31 mmHg (38-50); PO2 VBG 29 mmHg; pH VBG 7.42 (7.36-7.41)
--- NOTE | 2022-11-08 10:20 | History & Physical Report ---
Date of Service November 08, 2022 Assessment & Plan (1) Acute onset of severe vertigo: Plan: Acute / unstable Suspect due to hypomagnesemia however mild RLE weakness, headache and worse right lateral gaze nystagmus appears to suggestive more focal lesion therefore will get Brain MRI w/wo IV contrast to assess for cerebellar stroke If brain MRI negative suspect just due to severe hypomagnesemia. Replace Mg as below. Diazepam and meclizine given in the ER but will defer ongoing treatment for peripheral vertigo as suspect from low Mg. Possibility of peripheral vertigo remains however no specific symptoms point to this but right lateral gaze worsening with right fast beat points to a left sided peripheral vertigo. (2) Hypomagnesemia: Plan: Acute / unstable Suspect secondary to chronic PPI and HCTZ use insetting of acute loss from diarrheal illness Suspect causing cerebellar dysfunction with nystagmus and vertigo as above. On exam having paresthesias of finger tips b/l, hyperreflexia present. No heart block, QTc 459ms, respiratory distress, seizure. Seizure precautions ordered and will monitor for arrhythmia on telemetry. No prior level on EHR. Mg level < 0.5 on arrival, 2g IV ordered in ER, as soon as the IV stopped infusion his symptoms started to worsen again suspect due to Mg redistribution into cells No history of myasthenia gravis or significant renal dysfunction therefore will aim for 8g total IV Mg sulfate over 24 hours. Additional 1g now over 1 hour then 5g over 10 hours. Additionally will replace orally with Mg oxide 800mg PO BID Mg level every 6 hours, reduce infusion rate to 50% if level 5-7, stop infusion if level > 7 Careful phosphorus replacement as can lower Mg level. (3) High anion gap metabolic acidosis: Plan: Acute / unstable With respiratory compensation Suspect most likely from starvation ketosis from history BUN 30, Lactate, salicylate, acetaminophen, alcohol levels, urine drug screen, phosphorus level Beta-hydroxybutyric acid no longer inhouse test therefore not ordered but will assess for starvation ketosis on UA. (4) Hypophosphatemia: Plan: Acute / unstable PO 1.2 on admission, suspect from GI loss with diarrheal illness Careful replacement as can reduce magnesium level. Potassium phosphate 21 mmol IV to be given but will stop infusion if struggling to increase Mg level or symptoms getting worse. (5) Gastroenteritis: Plan: Acute / unstable Recent diarrhea illness Stool PCR and c. diff testing No current abdominal pain or worsening diarrhea to warrant CT (6) Leucocytosis: Plan: Acute / unstable Blood cultures taken but no current source indication for antibiotics. Procalcitonin reassuringly negative. Suspect mostly a stress reaction. Will continue to trend in AM. (7) HTN (hypertension): Plan: Chronic/unstable Continue amlodipine and olmesartan with hold parameters Hold HCTZ due to hypomagnesemia (8) Severe obstructive sleep apnea: Plan: Chronic/stable May use own CPAP, will go home to obtain this (9) Hyperglycemia: Plan: Acute/unstable No known diabetes Novolog ordered for correction factor 50 only HbA1C with AM labs (10) CKD (chronic kidney disease): Plan: Chronic/stable Cr at baseline Plan VTE Prophyalxis - heparin 5000 units SQ BID Diet - NPO given low PO to avoid refeeding syndrome. Can place diet once PO level > 2 Disposition - admit to PCU Admission and Anticipated Discharge Date Admission Date: November 08, 2022 History of Present Illness Chief Complaint: Vertigo Primary Care Provider: Evangelist Foreman MD Joseph Mg is an 82 year old male who presents to the ER with vertigo starting last night. He reports room spinning started after he got up from watching TV yesterday afternoon. He also felt lightheaded at that time but did not feel like he would pass out. Symptoms have been persistent since then but he was able to fall asleep. When he got up during the night he collapsed as the room was still spinning, unwitnessed fall, hitting his head with no loss of consciousness. No seizure like activity suspected. Associated nausea with the room spinning but he denies any vomiting. The fall prompted him to come to the ER for evaluation. He reports 7-10 days of worsening "stomach upset" which on further questioning appears to be epigastric pain, no radiation, nothing makes it better or worse. Associated watery diarrhea. No associated heartburn or acid taste in his mouth. He has not taken any medications for this. No acute change in respiratory or urinary infective symptoms other than shortness of breath which may be more just his generalized weakness and a dry cough. He has been eating and drinking much less the last few days. In the ER he was noted to be severely vertiginous which improved following Diazepam, meclizine, oral potassium supplementation and Mg sulfate infusion. He was found to be severely hypomagnesemic with level < 0.5 mg/dL. Concern for stroke due to new onset severe vertigo however CT head and CT head/neck angiogram were unremarkable. He has been on a omeprazole 40mg total daily for > 10 years. No prior problems with his magnesium known but also not been measured. He reports drinking 2-3 glasses of wine a few times a week. No history of alcohol withdrawal and not recent alcohol use. He has a history of CKD thought to be secondary to prior prostate cancer and BPH - treated with prostatectomy many years ago Allergies Allergy/AdvReac Type Severity Reaction Status Date / Time No Known Drug Allergies Allergy Unknown Verified 11/08/22 10:21 Home Medications Medication Instructions Recorded Confirmed Type cholecalciferol (vitamin D3) 50 2,000 units PO HS 04/17/19 11/08/22 History mcg (2,000 unit) capsule omeprazole 20 mg capsule,delayed 20 mg PO BID 02/06/20 11/08/22 History release amlodipine 5 mg tablet 5 mg PO DAILY #90 tabs 10/24/22 11/08/22 Rx atorvastatin 20 mg tablet (Lipitor) 20 mg PO QPM #90 tabs 10/24/22 11/08/22 Rx hydrochlorothiazide 12.5 mg capsule 12.5 mg PO QAM #90 caps 10/24/22 11/08/22 Rx olmesartan 20 mg tablet 20 mg PO DAILY #90 tabs 10/24/22 11/08/22 Rx Past Med/Surg History Medical History Arthralgia CKD (chronic kidney disease) GERD (gastroesophageal reflux disease) HTN (hypertension) Hyperglycemia Hyperlipidemia Prostate cancer diagnosed 2010--sx Severe obstructive sleep apnea cpap Surgical History History of bilateral cataract extraction History of cardiac cath roughly 20 yrs ago--no stents History of esophagogastroduodenoscopy (EGD) History of prostate biopsy History of prostatectomy History of wisdom tooth extraction S/P tonsillectomy Family History Father Myocardial infarction Hypertension Obesity Other No family history of adverse response to anesthesia Prostate cancer Denies family history of Ovarian cancer Breast cancer Colorectal cancer Social History Smoking Status: Unknown if ever smoked Second Hand Exposure: No; Do You Dip or Chew Tobacco: No; Hx Alcohol Use: Yes Alcohol type: wine Hx Substance Use: No Preferred Language: Citizen Of [place] Communication Ability: Effective Visual Impairment: No Limitations Hearing Ability: Normal Cra Required: No Beliefs That Will Affect Care: None marital status: Current Living Situation: Spouse current occupational status: retired How many Children do You have: 2 How many Children do You have Comment: 2 sons Other Information That Helps Us Care for You: No Feels Safe at Home: Yes Safety Concerns: Feels Safe At This Time Childhood Exposure to Second-Hand Smoke: Yes Diet: regular during the past year weight has: remained stable Dental Care, Regularly: Yes Physical Activity Frequency: 3-4 Times per Week Seatbelt Use: always Sunscreen Use: Yes Assistive Devices: CPAP Review of Systems Review of Systems: All systems reviewed & are unremarkable except as noted in HPI & below Neurologic: + headache(s) Physical Exam Constitutional: WD/WN, vitals as above Eyes: EOM intact bilaterally (diplopia) Fast beat to right side more pronounced with right lateral vision in both eyes with increased diplopia on right lateral vision ENMT: external ear and nose normal, oropharynx normal Respiratory: normal respiratory effort, lungs clear to auscultation Cardiovascular: RRR, no murmur, no edema Gastrointestinal (Abdomen): normal bowel sounds, soft, nontender, no hepatosplenomegaly Skin: right big toe Neurologic: plantar reflexes intact bilaterally, moves all extremities, + focal motor deficit (4+ hip flex right sided, otherwise 5/5 throughout) and awake; + abnormal deep tendon reflexes (hyperreflexia except in right knee and ankle) and not confused Speech / Cognition: normal speech Psychiatric: Orientation: alert and oriented x 3 Genitourinary: no CVA tenderness Results & Data Results & Data Vital Signs (Past 12 Hours) Vital Signs Temp Pulse Resp BP Pulse Ox 11/08/22 10:00 86 27 H 100 11/08/22 09:30 91 H 22 100 11/08/22 09:30 169/86 H 11/08/22 09:00 95 H 18 100 11/08/22 09:00 168/86 H 11/08/22 08:45 96 H 16 100 11/08/22 08:45 176/91 H 11/08/22 08:42 99 H 15 100 11/08/22 08:00 89 21 11/08/22 08:00 159/105 H 11/08/22 07:36 168/85 H 11/08/22 07:36 98 H 18 11/08/22 07:35 100 H 22 11/08/22 08:01 91 H 11/08/22 07:40 36.5 C 99 H 16 168/85 H 97 Laboratory Results Abnormal lab results 11/08/22 11/08/22 11/08/22 Range/Units 07:43 07:43 09:59 WBC 15.22 H (4.8-10.8) K/ul RBC 4.11 L (4.70-6.10) M/uL Hgb 12.6 L (14.0-18.0) g/dl Hct 35.1 L (42.0-52.0) % MPV 12.6 H (9.4-12.4) fL Neut # (Auto) 13.31 H (1.40-6.50) K/uL VBG pH 7.42 H (7.36-7.41) VBG pCO2 31 L (38-50) mmHg Potassium 2.9 L (3.5-5.1) mmol/L Carbon Dioxide 16 L (21-32) mmol/L Anion Gap 17 H (3-11) BUN 30 H (6-23) mg/dl Creatinine 1.65 H (0.6-1.4) mg/dl Glucose 209 H (70-99(Fasting)) mg/dl Calcium 8.2 L (8.6-10.3) mg/dl Magnesium < 0.5 L* (1.7-2.4) mg/dl Diagnostic Findings UNENHANCED CT OF THE BRAIN; CT ANGIOGRAM OF THE BRAIN; CT ANGIOGRAM OF THE NECK CLINICAL HISTORY: Headache and dizziness. Head injury. COMPARISON STUDY: MRI of the brain dated 02/05/2018. Carotid artery ultrasound dated 05/15/2013 TECHNIQUE: Unenhanced axial CT scan of the brain is performed. Subsequently, following the IV administration of 119 of Optiray 320, CT angiogram of the head and neck was performed from the aortic arch to the vertex. Images are reviewed in the axial, sagittal, and coronal planes. 3-D MIPS images are created and assessed. IV contrast was administered without complication. All measurements were calculated based on NASCET criteria. A dose lowering technique was utilized adhering to the principles of ALARA. CT DOSE: 1074.38 mGy.cm FINDINGS: Brain parenchyma: There is age-related involutional change noting minimal microangiopathic disease. There is no hemorrhage, mass effect, or evidence of acute territorial ischemia by CT criteria. There is no evidence of enhancing mass lesion on the angiogram phase images. The ventricles, sulci, and cisterns are prominent secondary to involutional change. Juarez-white matter differentiation is preserved. No extra-axial fluid collection is seen. Thoracic aorta: There is atherosclerotic calcification of the thoracic aorta. Visualized portions of the thoracic aorta are normal in caliber. The aortic arch demonstrates standard 3-vessel anatomy. Right carotid arterial system: The right common carotid artery is widely patent, as are the right internal and external carotid arteries. Calcified plaque is noted in the carotid bulb. Left carotid arterial system: The left common carotid artery is widely patent, as are the left internal and external carotid arteries. Calcified plaque is noted in the carotid bulb. Vertebral arteries: The vertebral arteries are widely patent bilaterally and codominant in the neck. Subclavian arteries: Widely patent bilaterally. Intracranial vasculature: There is atherosclerotic calcification of the cavernous carotid arteries. The internal carotid arteries are patent at the sk ull base, as are the anterior and middle cerebral arteries bilaterally. The left A1 segment is diminutive. There is origin of the left posterior cerebral artery. The vertebrobasilar system and posterior cerebral arteries are widely patent. The right vertebral artery is dominant. There is no aneurysm, high-grade stenosis, or focal vessel cut off seen throughout the intracranial circulation. Jugular veins: Patent bilaterally. Dural sinuses: Patent. Lung apices: A calcific granuloma is seen in the right upper lobe. Partially visualized upper lobe lung parenchyma otherwise appears clear. Soft tissues: There is a mild frontal scalp contusion. The visualized pharyngeal soft tissues are normal in appearance noting angiographic phase technique. The oropharyngeal airway appears widely patent. The salivary and thyroid glands are normal in appearance. No cervical lymphadenopathy is seen. Skeletal structures: The skeletal structures are osteopenic. The calvarium appears intact. The cervical spine is maintained Multilevel spondylosis. No lytic or blastic lesion is seen. Orbits: The bony orbits are intact. Orbital contents are normal as visualized noting bilateral ocular lens implants. Sinuses and mastoids: There is trace mucosal thickening within the left maxillary antrum. The remaining paranasal sinuses are clear. The mastoid air cells are well pneumatized. IMPRESSION: 1. There is no hemorrhage, mass effect, or evidence of acute territorial ischemia by CT criteria. 2. Unremarkable CT angiogram of the brain. 3. Unremarkable CT angiogram of the neck. Medications Administered ER Medications Given: Ondansetron 4mg IV Diazepam 2mg IV Potassium chloride 40 meq PO Meclizine 25mg PO ECG Rate (beats per minute): 96 Rhythm: normal sinus Findings: + RBBB; no acute ischemic change Comparison ECG Date: no prior available Code Status & VTE Plan Code Status Full - discussed with patient and his VTE Prophylaxis Plan VTE Prophylaxis will be ordered: Yes PG Care Time/CCT Total # of Minutes Spent Total Time Spent: 105 Total Time Spent with Patient: Total time spent is greater than 50% in coordination of care (as documented) at patient's floor/unit and/or counseling patient: Coding Level of Care Code 77481 INT INP/OBS CARE 375MIN Diagnoses Acute onset of severe vertigo R42 Hypomagnesemia E83.42 High anion gap metabolic acidosis E87.29 Hypophosphatemia E83.39 Gastroenteritis K52.9 Leucocytosis D72.829 HTN (hypertension) I10 Severe obstructive sleep apnea G47.33 Hyperglycemia R73.9 CKD (chronic kidney disease) N18.9
--- NOTE | 2022-11-08 10:27 | XRay Report ---
SINGLE VIEW CHEST CLINICAL HISTORY: Sepsis. FINDINGS: An AP, portable, upright chest radiograph is obtained. No prior studies are available for c omparison at the time of dictation. The heart is mildly enlarged noting atherosclerotic calcification of the thoracic aorta. The pulmonary vasculature is noncongested. Chronic interstitial thickening is similar to previous. The lungs and pleural spaces are otherwise clear noting mild bibasilar scarring /atelectasis. No pneumothorax is seen. The skeletal structures are osteopenic. The bony thorax is zack ssly intact. IMPRESSION: No active disease in the chest. ACT 112: Negative or not required by law. Electronically signed by: Carlos David M.D. 11/08/2022 10:26 AM
[2022-11-08 10:29] LABS: Appearance Urine Clear (Clear); Bacteria Urine Automated Negative (Negative); Bilirubin Urine Negative (Negative); Blood Urine Trace (Negative); Color Urine Yellow; Glucose Urine UA Negative (Negative); Ketones Urine 1+ (Negative); Leukocyte Esterase Urine Negative (Negative); Nitrite Urine Negative (Negative); Protein Urine Negative (Negative); RBC Urine Automated 0-4 /hpf (0-4); Urobilinogen Urine Negative (Negative)
[2022-11-08 10:29] LABS: C Reactive Protein < 0.50 mg/dl (0-0.5)
[2022-11-08 10:31] LABS: Phosphorus 1.2 mg/dl (2.5-4.9)
[2022-11-08] MEDS ORDERED: POTASSIUM PHOS 3 MMOL/1 ML INFUSION IV STA (10:58)
[2022-11-08] MEDS ORDERED: POTASSIUM PHOSPHATE 21 MMOL in SODIUM CHLORIDE 0.9% 500 ML IV ONE (11:15)
[2022-11-08] MEDS ORDERED: MAGNESIUM SULFATE / D5W 1 GM/100 ML BAG IV ONE (11:15)
[2022-11-08 11:19] LABS: Acetaminophen < 3 ug/ml (10-30); Salicylate < 3.0 mg/dl (3.0-30)
[2022-11-08 11:19] LABS: Amphetamines+Metham, Urine Neg (Neg); Barbiturates, Urine Neg (Neg); Benzodiazepine, Urine Neg (Neg); Cocaine, Urine Neg (Neg); MDMA (Ecstacy), Urine Neg (Neg); Methadone, Urine Neg (Neg); Opiate, Urine Neg (Neg); Phencyclidine, Urine Neg (Neg)
[2022-11-08 11:29] LABS: Albumin Globulin Ratio 1.6 (0.9-2); Globulin 2.7 gm/dl (2.5-4.0); Lipase 18 U/L (11-82)
--- NOTE | 2022-11-08 12:15 | XRay Report ---
RIGHT FIRST TOE 3 VIEWS CLINICAL HISTORY: Ecchymosis of the first nail bed. FINDINGS: 3 views of the right first toe are obtained. No prior studies are available for comparison at the time of dictation. The skeletal structures are osteopenic. No fracture is seen. There is no di slocation. Mild osteoarthritic change is seen at the first metatarsophalangeal joint, with soft tissu e calcification seen medial to the joint. There is mild soft tissue swelling noted in the first toe. Advanced atherosclerotic calcification is seen in the regional arteries. IMPRESSION: No acute bony abnormality is identified. Electronically signed by: Carlos David M.D. 11/08/2022 12:14 PM
[2022-11-08 12:27] LABS: Adenovirus PCR Not Detected (NotDetected); Bordetella parapertussis PCR Not Detected (NotDetected); Bordetella pertussis PCR Not Detected (NotDetected); Chlamydia pneumoniae PCR Not Detected (NotDetected); Coronavirus 229E PCR Not Detected (NotDetected); Coronavirus CoV-2 (COVID19)PCR Not Detected (NotDetected); Coronavirus HKU1 PCR Not Detected (NotDetected); Coronavirus NL63 PCR Not Detected (NotDetected); Coronavirus OC43PCR Not Detected (NotDetected); Human Metapneumovirus PCR Not Detected (NotDetected); Influenza A PCR Not Detected (NotDetected); Influenza B PCR Not Detected (NotDetected); Mycoplasma pneumoniae PCR Not Detected (NotDetected); Parainfluenza Virus 1 PCR Not Detected (NotDetected); Parainfluenza Virus 2 PCR Not Detected (NotDetected); Parainfluenza Virus 3 PCR Not Detected (NotDetected); Parainfluenza Virus 4 PCR Not Detected (NotDetected); Respiratory Syncytial VirusPCR Not Detected (NotDetected); Rhinovirus/Enterovirus PCR Not Detected (NotDetected)
[2022-11-08] MEDS ORDERED: GADOBUTROL 65ML VIAL IV ONE (13:06)
[2022-11-08] MEDS ORDERED: GLUCOSE 40% GEL 15 GM TUBE PO PRN (13:37)
[2022-11-08] MEDS ORDERED: ACETAMINOPHEN 325 MG TAB PO PRN (13:37)
[2022-11-08] MEDS ORDERED: CARBOHYDRATES FOR HYPOGLYCEMIA PO PRN (13:37)
[2022-11-08] MEDS ORDERED: GLUCAGON FOR INJ 1 MG VIAL SQ PRN (13:37)
[2022-11-08] MEDS ORDERED: GLUCOSE 10 TAB/TUBE PO PRN (13:37)
[2022-11-08] MEDS ORDERED: DEXTROSE 50% 50 ML SYRINGE IV PRN (13:37)
--- NOTE | 2022-11-08 13:42 | Magnetic Resonance Report ---
MRI OF THE BRAIN COMBO CLINICAL HISTORY: Vertigo. Nystagmus. COMPARISON STUDY: CT of the brain dated 11/08/2022. MRI of the brain dated 02/05/2018. TECHNIQUE: MRI of the brain was performed utilizing various T1 and T2-weighted sequences in the axial , sagittal, and coronal planes. Contrast-enhanced sequences were acquired following the administratio n of 8.5 cc of Gadavist. FINDINGS: Brain parenchyma: There is age-related involutional change. There is no hemorrhage or mass effect. Th ere is no restricted diffusion to suggest acute ischemia. No enhancing mass lesion is identified on t he postcontrast images. Juarez-white matter differentiation is preserved. No extra-axial fluid collecti on is seen. The cerebellar tonsils are normal in configuration. Ventricles, sulci, and cisterns: Prominent secondary to involutional change. Pituitary and sella: Unremarkable. Intracranial vasculature: Normal flow voids are maintained at the skull base. Orbits: The bony orbits are grossly intact. Orbital contents are normal in appearance noting bilatera l ocular lens implants. Sinuses and mastoids: There is an 8 mm retention cyst in the left maxillary antrum. The Remaining par anasal sinuses and the mastoid air cells are clear. Calvarium: Unremarkable. Cervical cord: Partially visualized cervical spinal cord is normal in morphology and signal intensity . IMPRESSION: No acute intracranial abnormality. ACT 112: Negative or not required by law. Electronically signed by: Carlos David M.D. 11/08/2022 1:40 PM
[2022-11-08] MEDS ORDERED: INSULIN ASPART PER UNIT CHARGE SC SCH (14:00)
[2022-11-08] MEDS: MAGNESIUM OXIDE 400 MG TAB PO SCH ×2 (14:18→20:35)
[2022-11-08 14:47] LABS: BUN Creatinine Ratio 20.2 (10-20); Calcium 7.9 mg/dl (8.6-10.3); Creatinine Clr Calc Pharmacy 41.3 ml/min; Est GFR (African American) 59.4 ml/min; Est GFR (Non-African American) 51.3 ml/min; Magnesium 0.9 mg/dl (1.7-2.4); Phosphorus 3.8 mg/dl (2.5-4.9); Potassium 3.6 mmol/L (3.5-5.1)
[2022-11-08] MEDS ORDERED: Nursing to Pharmacy Communication SCH (16:00)
[2022-11-08] MEDS: INSULIN ASPART PER UNIT CHARGE SC SCH ×2 (16:35→20:41)
[2022-11-08 20:09] LABS: BUN Creatinine Ratio 12.8 (10-20); Creatinine Clr Calc Pharmacy 24.4 ml/min; Est GFR (African American) 31.5 ml/min; Est GFR (Non-African American) 27.2 ml/min; Magnesium 1.5 mg/dl (1.7-2.4); Phosphorus 2.8 mg/dl (2.5-4.9); Potassium 3.4 mmol/L (3.5-5.1)
[2022-11-08] MEDS: HEPARIN SOD 5,000 UNIT/0.5 ML VIAL SQ SCH (20:50)
--- NOTE | 2022-11-08 23:43 | Hospitalist Progress Note ---
Date of Service November 08, 2022 Assessment & Plan (1) Acute onset of severe vertigo: Plan: Acute / unstable Suspect due to hypomagnesemia however mild RLE weakness, headache and worse right lateral gaze nystagmus appears to suggestive more focal lesion therefore will get Brain MRI w/wo IV contrast to assess for cerebellar stroke If brain MRI negative suspect just due to severe hypomagnesemia. Replace Mg as below. Diazepam and meclizine given in the ER but will defer ongoing treatment for peripheral vertigo as suspect from low Mg. Possibility of peripheral vertigo remains however no specific symptoms point to this but right lateral gaze worsening with right fast beat points to a left sided peripheral vertigo. (2) Hypomagnesemia: Plan: Acute / unstable Suspect secondary to chronic PPI and HCTZ use insetting of acute loss from diarrheal illness Suspect causing cerebellar dysfunction with nystagmus and vertigo as above. On exam having paresthesias of finger tips b/l, hyperreflexia present. No heart block, QTc 459ms, respiratory distress, seizure. Seizure precautions ordered and will monitor for arrhythmia on telemetry. No prior level on EHR. Mg level < 0.5 on arrival, 2g IV ordered in ER, as soon as the IV stopped infusion his symptoms started to worsen again suspect due to Mg redistribution into cells No history of myasthenia gravis or significant renal dysfunction therefore will aim for 8g total IV Mg sulfate over 24 hours. Additional 1g now over 1 hour then 5g over 10 hours. Additionally will replace orally with Mg oxide 800mg PO BID Mg level every 6 hours, reduce infusion rate to 50% if level 5-7, stop infusion if level > 7 Careful phosphorus replacement as can lower Mg level. (3) High anion gap metabolic acidosis: Plan: Acute / unstable With respiratory compensation Suspect most likely from starvation ketosis from history BUN 30, Lactate, salicylate, acetaminophen, alcohol levels, urine drug screen, phosphorus level Beta-hydroxybutyric acid no longer inhouse test therefore not ordered but will assess for starvation ketosis on UA. (4) Hypophosphatemia: Plan: Acute / unstable PO 1.2 on admission, suspect from GI loss with diarrheal illness Careful replacement as can reduce magnesium level. Potassium phosphate 21 mmol IV to be given but will stop infusion if struggling to increase Mg level or symptoms getting worse. (5) Gastroenteritis: Plan: Acute / unstable Recent diarrhea illness Stool PCR and c. diff testing No current abdominal pain or worsening diarrhea to warrant CT (6) Leucocytosis: Plan: Acute / unstable Blood cultures taken but no current indication for antibiotics. Procalcitonin reassuringly negative. Suspect mostly a stress reaction. Will continue to trend in AM. (7) HTN (hypertension): Plan: Chronic/unstable Continue amlodipine and olmesartan with hold parameters Hold HCTZ due to hypomagnesemia (8) Severe obstructive sleep apnea: Plan: Chronic/stable May use own CPAP, will go home to obtain this (9) Hyperglycemia: Plan: Acute/unstable No known diabetes Novolog ordered for correction factor 50 only HbA1C with AM labs (10) CKD (chronic kidney disease): Plan: Chronic/stable Cr at baseline Plan VTE Prophyalxis - heparin 5000 units SQ BID Diet - NPO given low PO to avoid refeeding syndrome. Can place diet once PO level > 2 Disposition - admit to PCU Admission and Anticipated Discharge Date Admission Date: November 08, 2022 Results & Data Results & Data Vital Signs (Past 12 Hours) Vital Signs Temp Pulse Pulse Resp BP Pulse Ox O2 Del Method 11/08/22 22:56 37.1 C 74 16 151/69 H 96 Room Air 11/08/22 19:46 36.6 C 93 H 18 138/70 97 Room Air 11/08/22 16:01 97 H 11/08/22 15:57 37.0 C 77 18 158/73 H 99 Room Air 11/08/22 13:24 Room Air 11/08/22 13:37 36.4 C L 89 18 151/81 H 100 Room Air 11/08/22 13:41 36.4 C L 89 18 151/81 H 100 Room Air 11/08/22 12:14 80 PG Care Time/CCT Total # of Minutes Spent Total Time Spent with Patient: Total time spent is greater than 50% in coordination of care (as documented) at patient's floor/unit and/or counseling patient: Coding Diagnoses Acute onset of severe vertigo R42 Hypomagnesemia E83.42 High anion gap metabolic acidosis E87.29 Hypophosphatemia E83.39 Gastroenteritis K52.9 Leucocytosis D72.829 HTN (hypertension) I10 Severe obstructive sleep apnea G47.33 Hyperglycemia R73.9 CKD (chronic kidney disease) N18.9
[2022-11-09 02:29] LABS: Base Excess VBG -0.3 mEq/L; HCO3 VBG 24 mmol/L; Oxygen Saturation VBG < 60.0 %; PCO2 VBG 38 mmHg (38-50); PO2 VBG 29 mmHg; pH VBG 7.41 (7.36-7.41)
[2022-11-09 02:34] LABS: Basophils # (auto) 0.02 K/uL (0-0.2); Basophils % (auto) 0.2 %; Eosinophils # (auto) 0.12 K/uL (0-0.50); Eosinophils % (auto) 1.1 %; Hematocrit (blood only) 32.1 % (42.0-52.0); Hemoglobin 11.1 g/dl (14.0-18.0); Immature Granulocytes # (auto) 0.06 K/uL (0.01-0.20); Immature Granulocytes % (auto) 0.5 %; Lymphocytes # (auto) 1.78 K/uL (1.2-3.4); Lymphocytes % (auto) 15.9 %; Mean Corpuscular Hemoglobin 30.2 pg (25.0-34.0); Mean Corpuscular Hgb Conc 34.6 g/dL (32.0-36.0); Mean Corpuscular Volume 87.5 fL (80.0-100.0); Mean Platelet Volume 11.6 fL (9.4-12.4); Monocytes # (auto) 0.96 K/uL (0.11-0.59); Monocytes % (auto) 8.6 %; Neutrophils # (auto) 8.23 K/uL (1.40-6.50); Neutrophils % (auto) 73.7 %; Platelet Count 182 K/uL (130-400); RDW Coefficient of Variation 12.1 % (11.5-14.5); RDW Standard Deviation 39.3 fL (36.4-46.3); Red Blood Count 3.67 M/uL (4.70-6.10); White Blood Count 11.17 K/ul (4.8-10.8)
[2022-11-09 03:21] LABS: BUN Creatinine Ratio 14.1 (10-20); Calcium 8.4 mg/dl (8.6-10.3); Creatinine Clr Calc Pharmacy 26.8 ml/min; Est GFR (African American) 35.2 ml/min; Est GFR (Non-African American) 30.4 ml/min; Magnesium 2.2 mg/dl (1.7-2.4); Phosphorus 2.8 mg/dl (2.5-4.9); Potassium 3.6 mmol/L (3.5-5.1)
[2022-11-09] MEDS: INSULIN ASPART PER UNIT CHARGE SC SCH (07:54)
[2022-11-09 08:51] LABS: BUN Creatinine Ratio 14.3 (10-20); Calcium 8.9 mg/dl (8.6-10.3); Creatinine Clr Calc Pharmacy 30.4 ml/min; Est GFR (African American) 41.1 ml/min; Est GFR (Non-African American) 35.5 ml/min; Magnesium 2.1 mg/dl (1.7-2.4); Phosphorus 2.3 mg/dl (2.5-4.9); Potassium 3.4 mmol/L (3.5-5.1)
[2022-11-09] MEDS: HEPARIN SOD 5,000 UNIT/0.5 ML VIAL SQ SCH ×2 (08:59→20:26)
[2022-11-09] MEDS: amLODIPine BESYLATE 5 MG TAB PO SCH (08:59)
[2022-11-09] MEDS: MAGNESIUM OXIDE 400 MG TAB PO SCH ×2 (09:00→21:20)
[2022-11-09] MEDS ORDERED: LOSARTAN POTASSIUM 50 MG TAB PO SCH (09:00)
[2022-11-09 09:38] LABS: Estimated Average Glucose 120 mg/dl; Hemoglobin A1C 5.8 % (4.5-5.6)
[2022-11-09 14:59] LABS: Calcium 8.9 mg/dl (8.6-10.3); Creatinine Clr Calc Pharmacy 28.3 ml/min; Est GFR (African American) 37.7 ml/min; Est GFR (Non-African American) 32.5 ml/min; Phosphorus 2.5 mg/dl (2.5-4.9); Potassium 3.6 mmol/L (3.5-5.1)
[2022-11-09] MEDS ORDERED: NSS + 20MEQ KCL 20 MEQ/1,000 ML BAG IV SCH (17:30)
--- NOTE | 2022-11-09 22:28 | Hospitalist Progress Note ---
Date of Service November 09, 2022 Assessment & Plan (1) Acute onset of severe vertigo: Plan: Acute / unstable Suspect due to hypomagnesemia however mild RLE weakness, headache and worse right lateral gaze nystagmus appears to suggestive more focal lesion therefore will get Brain MRI w/wo IV contrast to assess for cerebellar stroke MRI is negative. Magnesium appears to have improved. If symptoms continue to be present, likely vestibular neuritits, Will obtain PT/OT evals to help if BPPV is a contributing factor, though his clinical picture does not point towards this diagnosis, however, limited risk from trying maneuvers. will consider meclizine in AM. Possibility of peripheral vertigo remains however no specific symptoms point to this but right lateral gaze worsening with right fast beat points to a left sided peripheral vertigo. (2) Hypomagnesemia: Plan: Acute / unstable Suspect secondary to chronic PPI and HCTZ use insetting of acute loss from diarrheal illness Suspect causing cerebellar dysfunction with nystagmus and vertigo as above. On exam having paresthesias of finger tips b/l, hyperreflexia present. No heart block, QTc 459ms, respiratory distress, seizure. Seizure precautions ordered and will monitor for arrhythmia on telemetry. No prior level on EHR. Mg level < 0.5 on arrival, 2g IV ordered in ER, as soon as the IV stopped infusion his symptoms started to worsen again suspect due to Mg redistribution into cells No history of myasthenia gravis or significant renal dysfunction therefore will aim for 8g total IV Mg sulfate over 24 hours. Additional 1g now over 1 hour then 5g over 10 hours. Additionally will replace orally with Mg oxide 800mg PO BID Mg level every 6 hours, reduce infusion rate to 50% if level 5-7, stop infusion if level > 7 Careful phosphorus replacement as can lower Mg level. Levels improved on 11/09 (3) High anion gap metabolic acidosis: Plan: Acute / unstable With respiratory compensation Suspect most likely from starvation ketosis from history BUN 30, Lactate, salicylate, acetaminophen, alcohol levels, urine drug screen, phosphorus level Beta-hydroxybutyric acid no longer inhouse test therefore not ordered but will assess for starvation ketosis on UA. Improved on 11/09 (4) Hypophosphatemia: Plan: Acute / unstable PO 1.2 on admission, suspect from GI loss with diarrheal illness Careful replacement as can reduce magnesium level. Potassium phosphate 21 mmol IV to be given but will stop infusion if struggling to increase Mg level or symptoms getting worse. improved. (5) Gastroenteritis: Plan: Acute / unstable Recent diarrhea illness Stool PCR and c. diff testing No current abdominal pain or worsening diarrhea to warrant CT (6) Leucocytosis: Plan: Acute / unstable improving Blood cultures taken but no current source indication for antibiotics. Procalcitonin reassuringly negative. Suspect mostly a stress reaction. Will continue to trend in AM. (7) HTN (hypertension): Plan: Chronic/unstable Continue amlodipine and olmesartan with hold parameters Hold HCTZ due to hypomagnesemia (8) Severe obstructive sleep apnea: Plan: Chronic/stable May use own CPAP, will go home to obtain this (9) Hyperglycemia: Plan: Acute/unstable No known diabetes Novolog ordered for correction factor 50 only HbA1C with AM labs (10) CKD (chronic kidney disease): Plan: Chronic/stable Cr at baseline Plan VTE Prophyalxis - heparin 5000 units SQ BID Diet - NPO given low PO to avoid refeeding syndrome. Can place diet once PO level > 2 Disposition - admit to PCU Admission and Anticipated Discharge Date Admission Date: November 08, 2022 Subjective Patient reports that he is feeling better.\, less tremors. However, he continues to have vertigo, and he feels the cardoso are moving verticlaly. He staes this has been ongoing since monday. He also reports not eating well for at least 10 days and he had a GI symptoms with diarrhea. The dioarrhea has also improved. No loss of hearing, or tinnitus Review of Systems Review of Systems: All systems reviewed & are unremarkable except as noted in HPI & below Physical Exam Physical Exam: Constitutional: WD/WN, vitals as above Eyes: EOM intact bilaterally (diplopia)Fast beat to right side more pronounced with right lateral vision in both eyes with increased diplopia on right lateral vision (present on 11/09) Cardiovascular: RRR, no murmur, no edema Gastrointestinal (Abdomen): normal bowel sounds, soft, nontender, no hepatosplenomegaly Skin: right big toe Neurologic: normal finger to nose testing, moves all extremities, + focal motor deficit (4+ hip flex right sided, otherwise 5/5 throughout) and awake; + abnormal deep tendon reflexes (hyperreflexia except in right knee and ankle) and not confused Speech / Cognition: normal speech Psychiatric: Orientation: alert and oriented x 3 Genitourinary: no CVA tenderness Results & Data Results & Data Vital Signs (Past 12 Hours) Vital Signs Temp Pulse Resp BP BP Pulse Ox O2 Del Method 11/09/22 19:10 36.8 C 73 16 114/67 95 Room Air 11/09/22 17:32 36.5 C 90 16 124/68 91 Room Air 11/09/22 12:00 36.6 C 82 18 111/67 97 Room Air PG Care Time/CCT Total # of Minutes Spent Total Time Spent with Patient: Total time spent is greater than 50% in coordination of care (as documented) at patient's floor/unit and/or counseling patient: Coding Level of Care Code 53204 SUB INP/OBS CARE 3/50MIN Diagnoses Acute onset of severe vertigo R42 Hypomagnesemia E83.42 High anion gap metabolic acidosis E87.29 Hypophosphatemia E83.39 Gastroenteritis K52.9 Leucocytosis D72.829 HTN (hypertension) I10 Severe obstructive sleep apnea G47.33 Hyperglycemia R73.9 CKD (chronic kidney disease) N18.9
[2022-11-10] MEDS: MECLIZINE 12.5 MG TAB PO SCH ×4 (08:04→20:08)
[2022-11-10 08:05] LABS: Calcium 8.8 mg/dl (8.6-10.3); Creatinine Clr Calc Pharmacy 39.8 ml/min; Est GFR (African American) 51.6 ml/min; Est GFR (Non-African American) 44.5 ml/min; Potassium 4.1 mmol/L (3.5-5.1)
[2022-11-10] MEDS: MAGNESIUM OXIDE 400 MG TAB PO SCH ×2 (08:05→20:08)
[2022-11-10] MEDS: HEPARIN SOD 5,000 UNIT/0.5 ML VIAL SQ SCH ×2 (08:05→20:08)
[2022-11-10] MEDS: amLODIPine BESYLATE 5 MG TAB PO SCH (08:06)
--- NOTE | 2022-11-10 09:26 | Hospitalist Progress Note ---
Date of Service November 10, 2022 Assessment & Plan (1) Acute onset of severe vertigo: Plan: Acute / unstable Suspect due to hypomagnesemia however mild RLE weakness, headache MRI is negative for stroke. Magnesemia is replete, likely vestibular neuritits, Will obtain PT/OT evals to help if BPPV is a contributing factor meclizine seems to have helped somewhat Possibility of peripheral vertigo remains however no specific symptoms point to this but right lateral gaze worsening with right fast beat points to a left sided peripheral vertigo. meclizine 12.5 mg tid (2) Hypomagnesemia: Plan: Acute / unstable Suspect secondary to chronic PPI and HCTZ use insetting of acute loss from diarrheal illness Suspect causing cerebellar dysfunction with nystagmus and vertigo as above. on presentation having paresthesias of finger tips b/l, hyperreflexia present. No heart block, QTc 459ms, respiratory distress, seizure. Seizure precautions ordered and will monitor for arrhythmia on telemetry. No prior level on EHR. Mg level < 0.5 on arrival, 8 gms total orally with Mg oxide 800mg PO BID Mg Levels improved on 11/10 (3) High anion gap metabolic acidosis: Plan: Resolved With respiratory compensation Suspect most likely from starvation ketosis from history resolved (4) Hypophosphatemia: Plan: Acute / unstable/now resolved PO 1.2 on admission, suspect from GI loss with diarrheal illness Careful replacement as can reduce magnesium level. improved/resolved . (5) Gastroenteritis: Plan: Resolved / stool PCR and C. difficile negative Symptoms have abated (6) HTN (hypertension): Plan: Chronic/unstable Continue amlodipine and olmesartan with hold parameters Hold HCTZ due to hypomagnesemia (7) Severe obstructive sleep apnea: Plan: Chronic/stable May use own CPAP, will go home to obtain this (8) Hyperglycemia: Plan: Acute/unstable No known diabetes Novolog ordered for correction factor 50 only HbA1C 5.8% (9) CKD (chronic kidney disease): Plan: Chronic/stable stage 3 Cr at baseline Plan VTE Prophyalxis - heparin 5000 units SQ BID Admission and Anticipated Discharge Date Admission Date: November 08, 2022 Subjective Patient seen in the company of his . Still feeling his symptoms are quite significant but may be slightly improved from the morning. Conversational examination still shows nystagmus when looking to the left and right Patient notices most symptoms when looking downward No diplopia or other nervous system deficits noted Physical Exam Physical Exam: Patient with persistent nystagmus this is slow in its beat Neck is without carotid bruits cardiac exam is regular lungs are clear neurologically shows no other deficits certainly no significant tremors were present Results & Data Results & Data Vital Signs (Past 12 Hours) Vital Signs Temp Pulse Pulse Resp BP Pulse Ox O2 Del Method 11/10/22 07:09 97.9 F 71 20 111/64 93 Room Air 11/10/22 03:25 96.8 F L 70 18 128/75 99 Room Air 11/09/22 23:38 72 11/09/22 23:32 98.1 F 68 16 130/74 97 CPAP Laboratory Results Reviewed chemistry Reviewed stool PCR and C. difficile PG Care Time/CCT Total # of Minutes Spent Total Time Spent with Patient: Total time spent is greater than 50% in coordination of care (as documented) at patient's floor/unit and/or counseling patient: Coding Level of Care Code 83316 SUB INP/OBS CARE 2/35MIN Diagnoses Acute onset of severe vertigo R42 Hypomagnesemia E83.42 High anion gap metabolic acidosis E87.29 Hypophosphatemia E83.39 Gastroenteritis K52.9 HTN (hypertension) I10 Severe obstructive sleep apnea G47.33 Hyperglycemia R73.9 CKD (chronic kidney disease) N18.9
[2022-11-10 10:55] LABS: A calco-baum cmplx NotReported Not Detected (NotDetected); Bact fragilis Not Reported Not Detected (NotDetected); C auris Not Reported Not Detected (NotDetected); Calbicans Not Reported Not Detected (NotDetected); Candida glabrata Not Reported Not Detected (NotDetected); Candida krusei Not Reported Not Detected (NotDetected); Cneoformans/gatti Not Reported Not Detected (NotDetected); Cparapsilosis Not Reported Not Detected (NotDetected); Ctropicalis Not Reported Not Detected (NotDetected); E cloacae compx Not Reported Not Detected (NotDetected); Efaecalis Not Reported Not Detected (NotDetected); Efaecium Not Reported Not Detected (NotDetected); Enterobacterales Not Reported Not Detected (NotDetected); Escherichia coli Not Reported Not Detected (NotDetected); H influenzae Not Reported Not Detected (NotDetected); K aerogenes Not Reported Not Detected (NotDetected); Koxytoca Not Reported Not Detected (NotDetected); Kpneumoniae grp Not Reported Not Detected (NotDetected); Lmonocyt Not Reported Not Detected (NotDetected); N meningitidis Not Reported Not Detected (NotDetected); P aeruginosa Not Reported Not Detected (NotDetected); Proteus spp Not Reported Not Detected (NotDetected); Salmonella spp Not Reported Not Detected (NotDetected); Smarcescens Not Reported Not Detected (NotDetected); Staph lugdunensis Not Reported Not Detected (NotDetected); Staph spp. Not Reported Not Detected (NotDetected); Staphaureus Not Reported Not Detected (NotDetected); Staphepi Not Reported Not Detected (NotDetected); Stenmaltophilia Not Reported Not Detected (NotDetected); Strep agal(GrpB) Not Reported Not Detected (NotDetected); Strep pneum Not Reported Not Detected (NotDetected); Strep pyog (GrpA) Not Reported Not Detected (NotDetected); Strep spp Not Reported Not Detected (NotDetected)
[2022-11-10 11:37] LABS: Adenovirus F 40/41 PCR Not Detected (NotDetected); Astrovirus PCR Not Detected (NotDetected); Campylobacter PCR Not Detected (NotDetected); Cryptosporidium PCR Not Detected (NotDetected); Cyclospora cayetanensis PCR Not Detected (NotDetected); Entamoeba histolytica PCR Not Detected (NotDetected); Enteroaggregative E.coli(EAEC) Not Detected (NotDetected); Enteropathogenic E.coli (EPEC) Not Detected (NotDetected); Enterotoxigenic E.coli (ETEC) Not Detected (NotDetected); Giardia lamblia PCR Not Detected (NotDetected); Norovirus GI/GII PCR Not Detected (NotDetected); Plesiomonas shigelloides PCR Not Detected (NotDetected); Rotavirus A PCR Not Detected (NotDetected); Salmonella PCR Not Detected (NotDetected); Sapovirus PCR Not Detected (NotDetected); Shiga-like Toxin E.coli (STEC) Not Detected (NotDetected); Shigella/Enteroinvasive E.coli Not Detected (NotDetected); Vibrio cholerae PCR Not Detected (NotDetected); Vibrio species PCR Not Detected (NotDetected); Yersinia enterocolitica PCR Not Detected (NotDetected)
--- NOTE | 2022-11-10 17:19 | Hospitalist Progress Note ---
Date of Service November 10, 2022 Assessment & Plan (1) Acute onset of severe vertigo: Plan: Acute / unstable Suspect due to hypomagnesemia however mild RLE weakness, headache MRI is negative for stroke. Magnesemia is replete, likely vestibular neuritits, Will obtain PT/OT evals to help if BPPV is a contributing factor meclizine seems to have helped somewhat Possibility of peripheral vertigo remains however no specific symptoms point to this but right lateral gaze worsening with right fast beat points to a left sided peripheral vertigo. meclizine 12.5 mg tid (2) Hypomagnesemia: Plan: Acute / unstable Suspect secondary to chronic PPI and HCTZ use insetting of acute loss from diarrheal illness Suspect causing cerebellar dysfunction with nystagmus and vertigo as above. on presentation having paresthesias of finger tips b/l, hyperreflexia present. No heart block, QTc 459ms, respiratory distress, seizure. Seizure precautions ordered and will monitor for arrhythmia on telemetry. No prior level on EHR. Mg level < 0.5 on arrival, 8 gms total orally with Mg oxide 800mg PO BID Mg Levels improved on 11/10 (3) High anion gap metabolic acidosis: Plan: Resolved With respiratory compensation Suspect most likely from starvation ketosis from history resolved (4) Hypophosphatemia: Plan: Acute / unstable/now resolved PO 1.2 on admission, suspect from GI loss with diarrheal illness Careful replacement as can reduce magnesium level. improved/resolved . (5) Gastroenteritis: Plan: Resolved / stool PCR and C. difficile negative Symptoms have abated (6) HTN (hypertension): Plan: Chronic/unstable Continue amlodipine and olmesartan with hold parameters Hold HCTZ due to hypomagnesemia (7) Severe obstructive sleep apnea: Plan: Chronic/stable May use own CPAP, will go home to obtain this (8) Hyperglycemia: Plan: Acute/unstable No known diabetes Novolog ordered for correction factor 50 only HbA1C 5.8% (9) CKD (chronic kidney disease): Plan: Chronic/stable stage 3 Cr at baseline Plan VTE Prophyalxis - heparin 5000 units SQ BID 1 of 4 blood cultures have resulted positive with gram-positive bacilli. Patient without clinical symptomatology consistent with a bacteremia feeling this might be a contaminant therefore will not initiate antibiotic therapy but will have surveillance for infectious symptoms or laboratory serology awaiting final results Admission and Anticipated Discharge Date Admission Date: November 08, 2022 Results & Data Results & Data Vital Signs (Past 12 Hours) Vital Signs Temp Pulse Resp BP Pulse Ox O2 Del Method 11/10/22 15:40 97.9 F 75 21 127/66 93 Room Air 11/10/22 10:54 98.1 F 73 20 113/65 98 Room Air 11/10/22 07:09 97.9 F 71 20 111/64 93 Room Air PG Care Time/CCT Total # of Minutes Spent Total Time Spent with Patient: Total time spent is greater than 50% in coordination of care (as documented) at patient's floor/unit and/or counseling patient: Coding Level of Care Code None Diagnoses Acute onset of severe vertigo R42 Hypomagnesemia E83.42 High anion gap metabolic acidosis E87.29 Hypophosphatemia E83.39 Gastroenteritis K52.9 HTN (hypertension) I10 Severe obstructive sleep apnea G47.33 Hyperglycemia R73.9 CKD (chronic kidney disease) N18.9
--- NOTE | 2022-11-10 22:19 | Electrocardiogram Report ---
Test Reason : Blood Pressure : / mmHG Vent. Rate : 096 BPM Atrial Rate : 096 BPM P-R Int : 190 ms QRS Dur : 110 ms QT Int : 364 ms P-R-T Axes : 073 -42 060 degrees QTc Int : 459 ms Normal sinus rhythm Left axis deviation Incomplete right bundle branch block Abnormal ECG No previous ECGs available Confirmed by Sivakumar Romero ([id number]) on 11/10/2022 10:19:23 PM Referred By: REFERRED SELF Confirmed By:Sivakumar Romero
[2022-11-11] MEDS: MAGNESIUM OXIDE 400 MG TAB PO SCH (08:51)
[2022-11-11] MEDS: HEPARIN SOD 5,000 UNIT/0.5 ML VIAL SQ SCH (08:51)
[2022-11-11] MEDS: MECLIZINE 12.5 MG TAB PO SCH ×2 (08:51→12:47)
[2022-11-11] MEDS: amLODIPine BESYLATE 5 MG TAB PO SCH (08:52)
--- NOTE | 2022-11-11 19:13 | Discharge Summary ---
Date of Service November 11, 2022 Admission HPI Per Admitting Provider Joseph Mg is an 82 year old male who presents to the ER with vertigo starting last night. He reports room spinning started after he got up from watching TV yesterday afternoon. He also felt lightheaded at that time but did not feel like he would pass out. Symptoms have been persistent since then but he was able to fall asleep. When he got up during the night he collapsed as the room was still spinning, unwitnessed fall, hitting his head with no loss of consciousness. No seizure like activity suspected. Associated nausea with the room spinning but he denies any vomiting. The fall prompted him to come to the ER for evaluation. He reports 7-10 days of worsening "stomach upset" which on further questioning appears to be epigastric pain, no radiation, nothing makes it better or worse. Associated watery diarrhea. No associated heartburn or acid taste in his mouth. He has not taken any medications for this. No acute change in respiratory or urinary infective symptoms other than shortness of breath which may be more just his generalized weakness and a dry cough. He has been eating and drinking much less the last few days. In the ER he was noted to be severely vertiginous which improved following Diazepam, meclizine, oral potassium supplementation and Mg sulfate infusion. He was found to be severely hypomagnesemic with level < 0.5 mg/dL. Concern for stroke due to new onset severe vertigo however CT head and CT head/neck angiogram were unremarkable. He has been on a omeprazole 40mg total daily for > 10 years. No prior problems with his magnesium known but also not been measured. He reports drinking 2-3 glasses of wine a few times a week. No history of alcohol withdrawal and not recent alcohol use. He has a history of CKD thought to be secondary to prior prostate cancer and BPH - treated with prostatectomy many years ago Principal Diagnosis severe vertigo now resolved Discharge Exam awake alert appropriate still some lateral nystagmus although not associate with any diplopia or unsteady gait patient was able to walk with physical therapy and deemed safe to go home Discharge Data Allergies Allergy/AdvReac Type Severity Reaction Status Date / Time No Known Drug Allergies Allergy Unknown Verified 11/08/22 10:21 Consultations 11/08/22 10:18 ED Decision to Admit Stat Ordered Studies 11/08/22 07:48 CT head/brain wo con Stat 11/08/22 07:49 CT angio head w con Stat CT angio neck with con Stat 11/08/22 10:57 MRI Brain [MR brain wo/w con] Urgent Hospital Course (1) Acute onset of severe vertigo: Acute / unstable Suspect due to hypomagnesemia however mild RLE weakness, headache MRI is negative for stroke. Magnesemia is replete, likely vestibular neuritits, PT OT eval feels patient is ambulating without challenges. Possibility of peripheral vertigo remains however no specific symptoms point to this but right lateral gaze worsening with right fast beat points to a left sided peripheral vertigo. meclizine 12.5 mg tid Has helped the symptoms will go home on this for another 24 hours and if symptoms remain resolved may only take it as needed at that point (2) Hypomagnesemia: Acute / resolved Suspect secondary to chronic PPI and HCTZ use insetting of acute loss from diarrheal illness patient states he cannot go off his PPI and will likely have outpatient magnesium checked with oral supplementation as prehospital Suspect causing cerebellar dysfunction with nystagmus and vertigo as above. on presentation having paresthesias of finger tips b/l, hyperreflexia present. No heart block, QTc 459ms, respiratory distress, seizure. Seizure precautions ordered and will monitor for arrhythmia on telemetry. No prior level on EHR. Mg level < 0.5 on arrival, 8 gms total orally with Mg oxide 800mg PO BID Mg Levels improved (3) High anion gap metabolic acidosis: Resolved With respiratory compensation Suspect most likely from starvation ketosis from history resolved (4) Hypophosphatemia: Acute / unstable/now resolved improved/resolved . (5) Gastroenteritis: Resolved / stool PCR and C. difficile negative Symptoms have abated (6) HTN (hypertension): Chronic/unstable Continue amlodipine and olmesartan with hold parameters Hold HCTZ due to hypomagnesemia (7) Severe obstructive sleep apnea: Chronic/stable continues on home CPAP (8) Hyperglycemia: Acute/unstable No known diabetes HbA1C 5.8% (9) CKD (chronic kidney disease): acute kidney injury treated and resolved returns to Chronic/stable stage 3 chronic kidney disease Plan 1 of 4 blood cultures have resulted positive with gram-positive bacilli. Patient without clinical symptomatology consistent with a bacteremia feeling this might be a contaminant therefore will not initiate antibiotic therapy but will have surveillance for infectious symptoms or laboratory serology awaiting final results Total Time Total Time Spent Total Time Spent (In Minutes): it required greater than 30 minutes to prepare this patient for discharge Discharge Plan Discharge Items Patient Disposition: Home - Self-Care Reason For Visit: SEVERE HYPOMAGNESEMIA,VERTIGO Discharge Diagnosis: vertigo hypomagnesemia Activity: Per Instructions section Activity Comment: slowly increase activity Non-emergency contact: Primary Care Provider Call non-emergency contact if: your symptoms worsen Follow-up/Referrals: Evangelist Foreman MD [Primary Care Provider] - 11/18/22 10:30 am Diet: Regular Addtl Attending Provider Instructions: please take meclizine three times a day for at least one full day after symptoms ning if you have recurrence you may take meclizine as needed please see Dr Foreman for follow up and consider audiology follow up Pending Studies at Discharge: No Stand-Alone Forms: My [employer], Smoking Cessation Medications and DC Order Prescriptions: New magnesium oxide 400 mg (241.3 mg magnesium) Tablet 800 mg PO BID Qty: 60 3RF meclizine 12.5 mg Tablet 12.5 mg PO UD Qty: 20 0RF Rx Instructions: one three times a day for one full day after symptoms resolve then may restart every 8 hours as needed Continued cholecalciferol (vitamin D3) 50 mcg (2,000 unit) capsule 2,000 units PO HS omeprazole 20 mg capsule,delayed release(DR/EC) 20 mg PO BID amlodipine 5 mg tablet 5 mg PO DAILY Qty: 90 3RF atorvastatin [Lipitor] 20 mg tablet 20 mg PO QPM Qty: 90 3RF olmesartan 20 mg tablet 20 mg PO DAILY Qty: 90 3RF Held hydrochlorothiazide 12.5 mg capsule 12.5 mg PO QAM Qty: 90 3RF Hold Instructions: Resume on 11/18/22. Discharge Orders: Discharge Order (Routine); Ordered 11/11/22 Ordered By: Joce Martin Admission Data Admit Date/Time: 11/08/22 10:35 Attending Provider: Joce Martin Admit Provider: Linden Echevarria Primary Care Provider: Evangelist Foreman Other Providers: Linden Echevarria Other Interventions: Discharge Summary Assessment (RN) Last Done: 11/11/22 15:16 Coding Level of Care Code 00251 INP/OBS DISCH >30 MIN Diagnoses Acute onset of severe vertigo R42 Hypomagnesemia E83.42 High anion gap metabolic acidosis E87.29 Hypophosphatemia E83.39 Gastroenteritis K52.9 HTN (hypertension) I10 Severe obstructive sleep apnea G47.33 Hyperglycemia R73.9 CKD (chronic kidney disease) N18.9
== END 2022-11-11 15:33 | disposition home or self-care (01) | DRG 149 ==
LOC: ED 07:30 → 2S 10:35 → SUATTDRO 10:35 → 2S 13:10